=== PATIENT | female | born 1960 | race Hispanic/Latino ===

== ENCOUNTER 2019-07-23 20:36 | Inpatient (IN) | payer OTHER ==
[~2019-07-23] VITALS: Ht 165.1 cm; Wt 98.2 kg
--- NOTE | 2019-07-23 21:39 | Diagnostic Imaging Report ---
CT Abdomen and Pelvis without contrast INDICATION: Right-sided abdominal pain ^rlq and ruq pain ^[id number] ^2115 TECHNIQUE: Thin collimation axial images obtained from the diaphragm to the level of the pubic symphysis without nonionic intravenous contrast. Dose reduction techniques used: Automated exposure control, adjustment of the mAs and/or kVp according to patient size, standardized low-dose protocol, and/or iterative reconstruction technique. RADIATION DOSE: Total DLP: 1146.69 mGy*cm Estimated effective dose: (DLP x 0.015 x size factor) mSv CTDIvol has been reviewed. It is below the limits set by the Radiation Protocol Committee (RPC). COMPARISON: None. ABDOMEN FINDINGS: Lung Bases: Clear. The visualized portion of the mediastinum is normal. Liver: Steatosis. The right lobe measures 17 cm in length. No evidence of mass. Gallbladder: Present and appears normal. No ductal dilatation. Pancreas: Normal attenuation without mass. Spleen: Normal size with a few calcified granulomata. Adrenal Glands: No evidence for mass. Kidneys: Right: No renal calculus. No cortical mass or hydronephrosis Left: No renal calculus. No cortical mass or hydronephrosis Lymph Nodes: No lymphadenopathy. Aorta: Normal in diameter with scattered calcifications PELVIS FINDINGS: Bowel: Stomach: Normal. Small Bowel: Normal in caliber with normal wall thickness. Large Bowel: Normal in caliber with normal wall thickness. Appendix: Normal. Bladder: Normal. Ureters: No ureteral dilatation or calculus. The uterus is absent. No adnexal mass. Peritoneum/retroperitoneum: No free fluid or fluid collection. No free air. Bones: Mild degenerative changes of the spine. Soft tissues: Bilateral infraumbilical anterior abdominal wall subcutaneous inflammation overlying skin thickening. This may be secondary to injections. No evidence of abdominal wall hernia. IMPRESSION: 1. No evidence for bowel obstruction or inflammation. Normal appendix. 2. No evidence of renal calculus or obstructive uropathy. 3. Steatosis and mild hepatomegaly. Signed by: Dr. Tita Montenegro MD on 07/23/2019 9:35 PM
[2019-07-23] MEDS ORDERED: ACETAMINOPHEN 325 MG TAB ONE (22:29)
[2019-07-23] MEDS ORDERED: ACETAMINOPHEN 325 MG TAB PO ONE (22:30)
--- NOTE | 2019-07-23 22:36 | Diagnostic Imaging Report ---
HISTORY: Abdominal pain and fever ^rlq and ruq pain TECHNIQUE: Selected images from complete abdominal ultrasound provided for INTERPRETATION: COMPARISON: CT abdomen/pelvis 2112 hours. FINDINGS: Images are compromised due to patient's generous body habitus. Pancreas: Visualized portions are increased in echotexture suggestive of lipomatosis without mass or ductal dilatation. Liver: Measures 18.6 cm in sagittal plane. The echotexture is diffusely increased. No mass in the visualized portions. Portal Vein: Measures 1.1 cm. Proper directional flow on spectral Doppler interrogation. Intrahepatic bile ducts: Normal Gallbladder: Present. A reported gallstone is not visualized. The gallbladder wall measures 5 mm. The [facility] [employer] reports pericholecystic fluid but this is not confirmed on the static images. The [employer] also reports hyperemia of the gallbladder on Doppler interrogation. This is not confirmed on provided images, however. CBD: 0.9 cm. Right Kidney: 13.4 cm in greatest length. The echotexture is normal. There is no evidence for mass. There is no collecting system dilatation or evidence of obstruction. No renal calculi evident. No adjacent free fluid or fluid collections. Left Kidney: Length is 12.1 cm. The echotexture is normal. There is no evidence for mass. There is no collecting system dilatation or evidence of obstruction. No renal calculi evident. No adjacent free fluid or fluid collections. Spleen: 10.5 cm in length. No evidence for mass. Proximal Aorta: 1.9 cm. Mid and distal Aorta: Not visualized due to bowel gas There is no free fluid. IMPRESSION: 1. Mildly thickened gallbladder wall. No confirmation of increased blood flow within the wall or pericholecystic fluid on provided images. Dilated common bile duct without intrahepatic bile duct dilatation. Findings are inconclusive for acute cholecystitis. Recommend further evaluation with HIDA scan in nuclear medicine. 2. Hepatomegaly and steatosis. Signed by: Dr. Tita Montenegro MD on 07/23/2019 10:32 PM
[2019-07-23] MEDS ORDERED: METRONIDAZOLE 500MG/NS 100ML 100 ML IV ONE (23:15)
[2019-07-23] MEDS ORDERED: MORPHINE SULFATE INJ 4 MG/ML INJ 1ML IV PRN (23:15)
[2019-07-23] MEDS ORDERED: PIPER-TAZ 3.375 GM 50 ML IV ONE (23:15)
[2019-07-23] MEDS ORDERED: ONDANSETRON HCL INJ 2MG/ML 2ML 2 MG/ML VIAL IV PRN (23:15)
[2019-07-23] MEDS: SODIUM CHLORIDE 0.9% 1000ML 1,000 ML IV SCH (23:17)
[2019-07-23] MEDS ORDERED: ACETAMINOPHEN 325 MG TAB PO PRN (23:30)
[2019-07-24] VITALS (8 sets, daily range): BP systolic 122–152; BP diastolic 58–74
[2019-07-24] MEDS ORDERED: PIPER-TAZ 3.375 GM 50 ML IV SCH
--- NOTE | 2019-07-24 00:44 | NUR ---
ORIGINALLY CALLED [facility] ASKING FOR TANSPORT TO [facility], THEY STATED THEY HAD AN AMBUALNCE THAT WILL BE ARRIVING AT [facility] IN 10 MINUTES TO TAKE A PATIENT BACK TO PATIENTS HOME LOCATED OFF [facility] AND THAT THEY THEN WOULD RETURN TO [facility] TO TRANSPORT PT JOHNSON TO ROOM 204 AT [facility], CALLED AMBULANCE AT 1240 (EXACTLY ONE HOUR FROM PREVIOUS CALL) AND WAS INFORMED THAT THERE WAS A "HOLD UP" SOMEWHERE ALONG THE EITHER HEAD OF ACADEM[facility] TECHNOLOGY DROP OFF OR BOTH? WAS INFORMED THAT IT WOULD BE AN ADDITIONAL 30-45 MINUTES BEFORE PATIENT IS PICKED UP AT [facility] FOR TRANSPORT, STATED THAT THE AMBULANCE IS IN ROUTE TO DESTINATION, THAT THEY HADN'T EVEN ARRIVED YET TO DESTINATION???
[2019-07-24] MEDS: SODIUM CHLORIDE 0.9% 1000ML 1,000 ML IV SCH ×3 (02:00→20:50)
[2019-07-24] MEDS ORDERED: CARVEDILOL25 MG PO (03:18)
[2019-07-24] MEDS ORDERED: METFORMIN HCL500 MG PO (03:18)
[2019-07-24] MEDS ORDERED: NOVOLIN N100 UNIT/1 SQ (03:18)
[2019-07-24] MEDS ORDERED: BASAGLAR K100 UNIT/1 SQ (03:18)
[2019-07-24] MEDS ORDERED: TALTZ AUTO80 MG/1 ML SQ (03:18)
[2019-07-24] MEDS ORDERED: ALBUTEROL2.5 MG/3 M INH (03:18)
[2019-07-24] MEDS ORDERED: ATORVASTATIN CA20 MG PO (03:18)
[2019-07-24] MEDS ORDERED: VALSARTAN320 MG PO (03:18)
[2019-07-24] MEDS ORDERED: SYMBICORT 16010.2 GM INH (03:18)
[2019-07-24] MEDS ORDERED: AMLODIPINE BESY10 MG PO (03:18)
[2019-07-24] MEDS: PIPER-TAZ 3.375 GM 50 ML IV SCH ×4 (05:59→23:48)
[2019-07-24] MEDS ORDERED: METRONIDAZOLE 500MG/NS 100ML 100 ML IV SCH (06:00)
[2019-07-24 07:41] LABS: BASOPHILS % 0.1 % (0.0-1.0); EOSINOPHILS % 0.1 % (0.0-6.0); HEMATOCRIT 37.6 % (34.2-44.1); HEMOGLOBIN 12.7 g/dL (12.0-16.0); LYMPHOCYTES # (AUTO) 1.6 (1.0-3.2); LYMPHOCYTES % 11.9 % (18.0-39.1); MEAN CORPUSCULAR HEMOGLOBIN 27.5 pg (28-32); MEAN CORPUSCULAR HGB CONC 33.8 g/dL (31-35); MEAN CORPUSCULAR VOLUME 81.6 fL (81-99); MONOCYTES % 7.5 % (4.4-11.3); NEUTROPHILS # (AUTO) 10.8 (2.1-6.9); PLATELET COUNT 213 x10e3/uL (140-360); RED BLOOD COUNT 4.61 x10e6/uL (3.6-5.1); RED CELL DISTRIBUTION WIDTH 13.3 % (11.7-14.4)
[2019-07-24 08:07] LABS: ALANINE AMINOTRANSFERASE 18 IU/L (0-55); ALBUMIN 2.7 g/dL (3.5-5.0); ALBUMIN/GLOBULIN RATIO 0.7 (0.8-2.0); ALKALINE PHOSPHATASE 81 IU/L (40-150); ANION GAP 12.9 mmol/L (8-16); BLOOD UREA NITROGEN 13 mg/dL (7-26); BUN/CREATININE RATIO 17 (6-25); CALCIUM 8.3 mg/dL (8.4-10.2); CARBON DIOXIDE 25 mmol/L (22-29); CHLORIDE 101 mmol/L (98-107); CREATININE, SERUM 0.75 mg/dL (0.57-1.11); EST GLOMERULAR FILTRATION RATE > 60 ML/MIN (60-); GLUCOSE 326 mg/dL (74-118); POTASSIUM 3.9 mmol/L (3.5-5.1); SODIUM 135 mmol/L (136-145)
[2019-07-24] MEDS: METRONIDAZOLE 500MG/NS 100ML 100 ML IV SCH ×2 (08:43→16:56)
--- NOTE | 2019-07-24 12:18 | NUR ---
Pt out of room and no family at bedside. A card was left at the bedside to indicate a missed visit from a member of the Spiritual Care team and to inform the pt and family of the availability of a Package Collector 24 hours a day/7 days a week. A shactor helper will follow up as able. GAGE HUBBARD Package Collector Spiritual Care Department O: [phone]
[2019-07-24] MEDS ORDERED: DEXTROSE 50% SYRINGE 50 ML IV PRN (12:30)
[2019-07-24] MEDS ORDERED: HYDRALAZINE HCL 20 MG/ML VIAL IV PRN (14:30)
[2019-07-24] MEDS ORDERED: ALBUTEROL SULF 0.083% NEB SOLN 3 ML NEB INH PRN (14:30)
[2019-07-24] MEDS: FAMOTIDINE 20 MG TAB PO SCH (16:56)
[2019-07-24] MEDS: INSULIN LISPRO 100 UNIT/1 ML 3ML VIAL SQ SCH ×2 (16:57→21:00)
[2019-07-24] MEDS: METFORMIN HCL 500 MG TAB PO SCH (16:58)
[2019-07-24] MEDS: BUDESONIDE/FORMOTEROL 160/4.5MCG INHALER INH SCH (16:58)
[2019-07-24] MEDS: CARVEDILOL 12.5 MG TAB PO SCH (16:58)
--- NOTE | 2019-07-24 16:58 | Diagnostic Imaging Report ---
Hepatobiliary Scan with Gallbladder Ejection Fraction Clinical information: RUQ pain Technique: Following intravenous administration of 6.0 millicuries of Tc-99m mebrofenin, dynamic images of the abdomen in the anterior projection were obtained through 28 minutes. Sincalide (CCK analog) 1.9 micrograms was administered intravenously over 30 minutes with additional imaging for determination of gallbladder ejection fraction. Discussion: Perfusion of the liver is normal. Extraction of tracer by the liver parenchyma is normal. Tracer appears promptly within the biliary tract. The gallbladder begins to fill at 10 minutes post injection of tracer and fills adequately. Tracer is seen in the small bowel during the sincalide infusion. There is no contractile response by the gallbladder to the pharmacologic dose of sincalide. No emptying of the gallbladder occurs during the 30 minute infusion. Impression: 1. Filling of the gallbladder excludes acute cystic duct obstruction/acute cholecystitis. 2. The gallbladder ejection fraction is undefined as there is no emptying of the gallbladder during the infusion of sincalide. This absence of a contractile response to sincalide supports the clinical diagnosis of chronic cholecystitis/gallbladder dyskinesia. Signed by: Dr. Mell Romero M.D. on 07/24/2019 4:55 PM
--- NOTE | 2019-07-24 17:15 | Consultation ---
DATE OF CONSULTATION: 07/24/2019 CHIEF COMPLAINT: Abdominal pain. HISTORY OF PRESENT ILLNESS: The patient is a 58-year-old female with several-day history of pain in the right upper quadrant with subjective fever and chills with nausea, but no vomiting. No diarrhea. The patient admits to fatty food intolerance with indigestion. PAST MEDICAL HISTORY: Significant for diabetes, hypertension, and liver cirrhosis. PAST SURGICAL HISTORY: Unremarkable. ALLERGIES: NO DRUG ALLERGIES. SOCIAL HABITS: No smoking or alcohol abuse. REVIEW OF SYSTEMS: No chest pain, shortness of breath, or cough. PHYSICAL EXAMINATION: VITAL SIGNS: Stable, afebrile. GENERAL: She is awake, alert, in huyy-qj-zyfynayz discomfort. HEENT: Sclerae anicteric. NECK: Supple. LUNGS: Clear. HEART: Regular rate and rhythm. ABDOMEN: Soft with guarding and tenderness in right upper quadrant. No rebound. EXTREMITIES: No cyanosis or edema. LABORATORY DATA: White cell count is 14, hemoglobin of 12.7, platelet count 213. Creatinine of 0.5. Liver function tests within normal limits. Ultrasound of the gallbladder shows mildly thickened gallbladder wall with mildly dilated bile duct. CT of the abdomen unremarkable for any acute findings. ASSESSMENT: Abdominal pain, right upper quadrant, probable cholecystitis. PLAN: HIDA scan is pending. We will follow the patient with you. MD ROSA Charles/DILLON /[id number]
[2019-07-24] MEDS: ATORVASTATIN 20 MG TAB PO SCH (21:38)
[2019-07-25] VITALS (8 sets, daily range): BP systolic 113–178; BP diastolic 55–87
[2019-07-25] MEDS: METRONIDAZOLE 500MG/NS 100ML 100 ML IV SCH ×3 (00:43→15:30)
[2019-07-25] MEDS: PIPER-TAZ 3.375 GM 50 ML IV SCH ×4 (05:46→23:12)
[2019-07-25] MEDS: SODIUM CHLORIDE 0.9% 1000ML 1,000 ML IV SCH ×3 (07:12→22:59)
[2019-07-25] MEDS ORDERED: BUPIVACAINE 0.25% 30ML SDV INJ ONE (07:17)
[2019-07-25] MEDS: FAMOTIDINE 20 MG TAB PO SCH ×2 (07:30→16:46)
[2019-07-25] MEDS: BUDESONIDE/FORMOTEROL 160/4.5MCG INHALER INH SCH ×2 (07:50→19:00)
[2019-07-25] MEDS: METFORMIN HCL 500 MG TAB PO SCH ×2 (08:00→16:47)
--- NOTE | 2019-07-25 08:00 | NUR ---
Pt aao x 3. Ambulates with steady gait. Remains NPO for procedure today. Pt up to shower. Denies of any pain at this time.
[2019-07-25] MEDS: INSULIN LISPRO 100 UNIT/1 ML 3ML VIAL SQ SCH ×4 (08:06→21:36)
[2019-07-25] MEDS: AMLODIPINE BESYLATE 10 MG TAB PO SCH (08:07)
[2019-07-25] MEDS: CARVEDILOL 12.5 MG TAB PO SCH ×2 (08:07→16:47)
[2019-07-25] MEDS: VALSARTAN 160 MG TAB PO SCH (08:07)
--- NOTE | 2019-07-25 11:30 | NUR ---
PT TO OR DEPT FOR PROCEDURE VIA STRETCHER. PT AAO X 3. DENIES OF ANY PAIN.
--- NOTE | 2019-07-25 13:53 | Operative Report ---
DATE OF PROCEDURE: 07/25/2019 SURGEON: Aj Peacock MD PREOPERATIVE DIAGNOSIS: Cholecystitis. POSTOPERATIVE DIAGNOSIS: Cholecystitis. OPERATIVE PROCEDURE: Laparoscopic cholecystectomy. ANESTHESIA: General. INDICATION FOR SURGERY: A 58-year-old female with history of abdominal pain and vomiting with ultrasound showing gallbladder distention. HIDA scan show nonemptying of the gallbladder. The patient consented for laparoscopic cholecystectomy. Attendant risks discussed. PROCEDURE FINDING: Liver cirrhosis with chronic cholecystitis. DESCRIPTION OF PROCEDURE: The patient was brought to the OR intubated. The abdomen was prepped and draped in a sterile fashion. The left upper quadrant direct port access was carried out under direct vision. Other ports were placed in the umbilical, epigastric and right upper quadrant. Gallbladder was chronically inflamed and distended. Fundus retracted in cephalad direction. Neck of the gallbladder retracted laterally with blunt and sharp dissection. We isolated cystic artery, triple clipped and divided. Cystic duct was also isolated, triple clipped and divided. The gallbladder detached from the liver and placed in an Endopouch and retrieved out of the peritoneal cavity. Operative field was then irrigated. Hemostasis achieved. All ports were removed under direct vision. Fascia was closed with 0 Vicryl. Skin was then closed with subcuticular stitch. The patient was extubated and transported to recovery room. BLOOD LOSS: 10 mL. Aj Peacock MD DNL/MODL /[id number]
[2019-07-25] MEDS ORDERED: FENTANYL CITRATE/PF 100MCG/2 ML INJ ONE ×2 (14:01→19:48)
--- NOTE | 2019-07-25 14:45 | NUR ---
Recieved pt from PACU via stretcher. Pt aao x 3. RAMACHANDRAN without difficutly. Pt able to ambulate from stretcher to bed without difficulty. O2 at 2L/nc. 5 bandaids to abd dry and intact. IV to RFA patent without any redness or swelling. Pt denies of any pain at this time. Bed in low position, SR up x 2, call anguiano within reach. Will continue to monitor.
--- NOTE | 2019-07-25 16:10 | NUR ---
Patient continues to complain of pain in right knee due to gout. Dr. Linares called. New orders received. Patient is also refusing to take any further laxative for colonoscopy prep until pain in knee is better Addendum: 07/25/19 at 1709 by Kerline Alfonso RN Please disregard this note. It was entered in error on the wrong patient.
[2019-07-25] MEDS ORDERED: ONDANSETRON HCL INJ 2MG/ML 2ML 2 MG/ML VIAL ONE (16:25)
[2019-07-25] MEDS ORDERED: DEXAMETHASONE SOD PHOS INJ 4 MG/ML VIAL ONE (16:25)
[2019-07-25] MEDS ORDERED: NEOSTIGMINE 1 MG/ML 10ML VIAL ONE (16:25)
[2019-07-25] MEDS ORDERED: SEVOFLURANE INHAL SOLN 250 ML PEN BTL ONE (16:25)
[2019-07-25] MEDS ORDERED: LIDOCAINE HCL 2% LOCAL INJ 5 ML SDV VIAL INJ ONE (16:25)
[2019-07-25] MEDS ORDERED: GLYCOPYRROLATE INJ 0.2 MG/ML VIAL ONE (16:25)
[2019-07-25] MEDS ORDERED: PROPOFOL IV EMULSION 10 MG/ML 20 ML VIAL ONE (16:25)
[2019-07-25] MEDS ORDERED: ROCURONIUM BROMIDE 10 MG/ML 5ML VIAL IV ONE (16:25)
--- NOTE | 2019-07-25 17:00 | NUR ---
Patient sitting up at edge of bed. Tolerating clear liquid diet. No n/v present. Pt denies of any pain at this time.
[2019-07-25] MEDS ORDERED: MIDAZOLAM HCL 2 MG/2 ML VIAL ONE (19:48)
[2019-07-25] MEDS: ATORVASTATIN 20 MG TAB PO SCH (21:34)
[2019-07-26] VITALS: BP 132/61
[2019-07-26] MEDS: METRONIDAZOLE 500MG/NS 100ML 100 ML IV SCH ×2 (00:35→08:38)
[2019-07-26 04:00] VITALS: BP 128/64
[2019-07-26] MEDS: PIPER-TAZ 3.375 GM 50 ML IV SCH (05:19)
[2019-07-26 05:22] LABS: BASOPHILS % 0.2 % (0.0-1.0); EOSINOPHILS % 0.1 % (0.0-6.0); HEMOGLOBIN 11.4 g/dL (12.0-16.0); LYMPHOCYTES # (AUTO) 1.3 (1.0-3.2); MEAN CORPUSCULAR HEMOGLOBIN 27.1 pg (28-32); MEAN CORPUSCULAR HGB CONC 32.6 g/dL (31-35); MEAN CORPUSCULAR VOLUME 83.1 fL (81-99); MONOCYTES # (AUTO) 0.5 (0.2-0.8); MONOCYTES % 4.1 % (4.4-11.3); NEUTROPHILS # (AUTO) 9.3 (2.1-6.9); NEUTROPHILS % 83.1 % (38.7-80.0); PLATELET COUNT 194 x10e3/uL (140-360); RED BLOOD COUNT 4.21 x10e6/uL (3.6-5.1); RED CELL DISTRIBUTION WIDTH 13.3 % (11.7-14.4)
[2019-07-26 05:45] LABS: ANION GAP 13.9 mmol/L (8-16); BLOOD UREA NITROGEN 11 mg/dL (7-26); BUN/CREATININE RATIO 16 (6-25); CALCIUM 7.7 mg/dL (8.4-10.2); CARBON DIOXIDE 18 mmol/L (22-29); CHLORIDE 109 mmol/L (98-107); CREATININE, SERUM 0.67 mg/dL (0.57-1.11); EST GLOMERULAR FILTRATION RATE > 60 ML/MIN (60-); GLUCOSE 258 mg/dL (74-118); MAGNESIUM 1.8 MG/DL (1.3-2.1); PHOSPHORUS 2.4 MG/DL (2.3-4.7); POTASSIUM 3.9 mmol/L (3.5-5.1); SODIUM 137 mmol/L (136-145)
[2019-07-26] MEDS: BUDESONIDE/FORMOTEROL 160/4.5MCG INHALER INH SCH (06:25)
[2019-07-26 08:00] VITALS: BP 138/66
[2019-07-26 08:37] VITALS: BP 138/66
[2019-07-26] MEDS: FAMOTIDINE 20 MG TAB PO SCH (08:38)
[2019-07-26] MEDS: METFORMIN HCL 500 MG TAB PO SCH (08:38)
[2019-07-26] MEDS: CARVEDILOL 12.5 MG TAB PO SCH (08:38)
[2019-07-26] MEDS: VALSARTAN 160 MG TAB PO SCH (08:39)
[2019-07-26] MEDS: AMLODIPINE BESYLATE 10 MG TAB PO SCH (08:39)
[2019-07-26] MEDS: INSULIN LISPRO 100 UNIT/1 ML 3ML VIAL SQ SCH ×2 (08:39→12:05)
[2019-07-26 12:00] VITALS: BP 142/71
--- NOTE | 2019-07-26 13:02 | Discharge Summary ---
PERTINENT HISTORY AND PHYSICAL FINDINGS AND CHIEF COMPLAINT: Right upper quadrant abdominal pain. HISTORY OF PRESENT ILLNESS: Ms. Chavez is a 58-year-old female, admitted via the emergency department with complaints of intermittent right upper quadrant abdominal pain for over one month. She had a fever of 101.0 at home and took Tylenol. Denied any nausea, vomiting, diarrhea, but also had a right earache, abdominal pain 6/10 in the emergency department. The patient states she felt cold at home, had a temperature 97.7, which tram to 102.5. She denied any sick contacts remarking that she had been staying at home away from people. No vomiting or diarrhea. PAST MEDICAL HISTORY: Hypertension, type 2 diabetes mellitus, psoriasis, cerebral aneurysm, early cataract, left eye, hyperlipidemia. PAST SURGICAL HISTORY: Surgical repair of right patella, hysterectomy with cancer, total abdominal hysterectomy, bilateral salpingo-oophorectomy, repair of left arm, which was cut on a fence at age 10. PAST FAMILY HISTORY: Mother had adenocarcinoma on the common bile duct. Father had coronary artery bypass graft x3. Her brother had diabetes and her sister had cerebral aneurysm and from that. SOCIAL HISTORY: She denied any previous history of tobacco, alcohol, or illicit drugs. ALLERGIES: NO KNOWN ALLERGIES. ADMITTING DIAGNOSES: 1. Possible acute cholecystitis. 2. Acute right upper quadrant abdominal pain. 3. Uncontrolled hypertension. 4. Uncontrolled type 2 diabetes mellitus. 5. Obesity with BMI of 35.94. DISCHARGE DIAGNOSES: 1. Acute on chronic cholecystitis, status post laparoscopic cholecystectomy by Dr. Peacock on 07/25/2019. 2. Acute right upper quadrant abdominal pain, now acute postoperative abdominal pain. 3. Uncontrolled hypertension. 4. Uncontrolled type 2 diabetes mellitus. 5. Obesity with BMI of 35.94 on admission. WBCs were 13.51, hemoglobin 12.7, hematocrit 37.6, and platelets 213. Sodium 135, potassium 3.9, chloride 101, BUN 13, creatinine 0.75, estimated GFR greater than 60, glucose 326, calcium 8.3. LFTs within normal limits. Albumin 2.7, total protein 6.6. The patient had an abdomen and pelvis CT, which according to the interpreting radiologist showed no evidence for bowel obstruction or inflammation. No evidence of renal calculus or obstructive uropathy. Positive for steatosis and mild hepatomegaly. Her abdominal ultrasound was completed on July 22 and showed mildly thickened gallbladder wall, dilated common bile duct without intrahepatic bile duct dilation. Findings inconclusive for acute cholecystitis. HIDA scan was recommended, which the patient underwent on July 23, which showed filling of the gallbladder excludes acute cystic duct obstruction/acute cholecystitis. The gallbladder ejection fraction was undefined as there was no emptying of the gallbladder during infusion of sincalide absence of a contractile response supported the clinical diagnosis of chronic cholecystitis/gallbladder dyskinesia. Postoperatively, sodium 137, potassium 3.9, chloride 109, CO2 18, BUN 11, creatinine 0.67, estimated GFR greater than 60, glucose 258, calcium 7.7, phosphorus 2.4, magnesium 1.8. Fingerstick blood glucose level 277. WBCs 11.11, hemoglobin 11.4, hematocrit 35, platelets 194. Today the day of discharge, the patient still has a bit of central abdominal pain around her incision site. Describes her pain as a 3/10 on a 0-10 pain scale. She is eating well, tolerating GI soft diet. Not having any chills. She had diarrhea three times yesterday, but none today. No nausea or vomiting. Maximum temperature 99.3, heart rate 89, blood pressure 132/61, respirations 20, oxygen saturation 99%. The patient will be discharged on a GI soft diet. She is to follow up with her PCP in 1-2 weeks. Follow up with Dr. Key with Gastroenterology, who was consulted as directed. Colonoscopy is planned on an outpatient basis. Follow up with Dr. Peacock with surgery as directed. Dictated by Tenzin Guevara NP MD GI[facility] Conrad/SPIKEL /[id number]
--- NOTE | 2019-07-26 13:28 | NUR ---
Discharge instructions given to the patient. She verbalized understanding. IV to the left forearm was removed with tip intact.
--- NOTE | 2019-07-26 16:27 | NUR ---
Nutrition Screen Note RD Recommendation for Physician: -Recommend low fat diet Plan of Care: RD following, monitoring for tolerance and adequacy Nutrition reason for involvement: consult low fat diet education Primary Diagnose(s): acute cholecystitis PMH: diabetes, hypertension, and liver cirrhosis Ht: 65 in Wt:216 lb BMI: 36 kg/m2 IBW:[address] Assessment: (07/26/19) Chart reviewed. Labs and meds reviewed. Pt is a 58 year old female admitted with acute cholecystitis. On 07/24, pt had a laparascopic cholecystectomy. Per MD note, it is noted that pt has a fatty food intolerance with indigestion. Pt reports she has been tolerating her diet. No N/V at this time. Prior to admission, pt reports eating most of her meals. Pt reports she usually weighs 208 lbs; however, pt has a weight of 216 lbs in chart. Will continue to monitor. Current Diet: regular Malnutrition Evaluation (07/26/19) The patient does not meet criteria for a specified degree of malnutrition at this time. Will re-evaluate at follow-up as appropriate. Diet Education Needs Assessment: RD received consult for low fat diet education. Pt was not interested in verbal education at time of visit and stated she will read provided materials at a later time. RD provided pt with written materials regarding a low fat diet. Encouraged pt to contact RD if she has questions. Nutrition Care Level: low Signed: Анна Donahue, GORDY, LD
== END 2019-07-26 14:14 | disposition home or self-care (01) | DRG 419 ==
LOC: FSED 20:36 → ERHOLD 23:12 → MED/SURG2 07-24 01:45
PROVIDERS: ADMIT Internal Medicine; ATTEND Internal Medicine
PROC: 0FT44ZZ Resection of Gallbladder, Percutaneous Endoscopic Approach (ICD-10-PCS; principal; 2019-07-25 09:30)
DX: K81.0 Acute cholecystitis (principal); K81.1 Chronic cholecystitis; I10 Essential (primary) hypertension; E11.65 Type 2 diabetes mellitus with hyperglycemia; E66.9 Obesity, unspecified; K74.60 Unspecified cirrhosis of liver; Z68.35 Body mass index [BMI] 35.0-35.9, adult; Z80.0 Family history of malignant neoplasm of digestive organs; Z86.010 Personal history of colon polyps; R19.7 Diarrhea, unspecified; Z79.4 Long term (current) use of insulin
CPT/HCPCS: 36415; 74176; 76700; 78227; 80048; 80053; 81003; 82948; 83735; 84100; 85025; 88304; 94664; 96360; 96361; 96365; 97139; 99284; A9537; J1100; J2001; J2250; J2270; J2405; J2543; J2710; J3010; J7030

== ENCOUNTER 2019-08-15 08:33 | Emergency (ER) | payer OTHER ==
[~2019-08-15] VITALS: Ht 165.1 cm; Wt 95.7 kg
[~2019-08-15 08:33] MED LIST: ALBUTEROL2.5 MG/3 M INH; AMLODIPINE BESY10 MG PO; ATORVASTATIN CA20 MG PO; BASAGLAR K100 UNIT/1 SQ; CARVEDILOL25 MG PO; METFORMIN HCL500 MG PO; NOVOLIN N100 UNIT/1 SQ; SYMBICORT 16010.2 GM INH; TALTZ AUTO80 MG/1 ML SQ; VALSARTAN320 MG PO
[2019-08-15] MEDS ORDERED: CEFTRIAXONE SOD 1 GM VIAL IM ONE (09:15)
[2019-08-15] MEDS ORDERED: LIDOCAINE HCL 1% LOCAL INJ 20 ML VIAL ONE (09:18)
[2019-08-15] MEDS ORDERED: ACETAMINOPHEN 325 MG TAB PO SCH (09:30)
[2019-08-15] MEDS ORDERED: DOXYCYCLINE HY100 M3 PO (09:34)
[2019-08-15 09:54] VITALS: BP 102/57
== END 2019-08-15 09:53 | disposition home or self-care (01) ==
LOC: ER 08:33 → FSED 09:53
DX: R50.9 Fever, unspecified (principal); J01.00 Acute maxillary sinusitis, unspecified; J01.20 Acute ethmoidal sinusitis, unspecified
CPT/HCPCS: 96372; 99283; J0696; J2001

== ENCOUNTER 2019-12-08 17:17 | Emergency (ER) | payer OTHER ==
[~2019-12-08] VITALS: Ht 165.1 cm; Wt 95.3 kg
[~2019-12-08 17:17] MED LIST changes: +DOXYCYCLINE HY100 M3 PO
--- OUTSIDE RECORDS SUMMARY | 2019-12-08 17:41 | XMS REPORT | Clinical Summary ---
Author Author [facility] Organization [facility] Address Unknown Phone Unavailable Care Team Providers Care Order Administrator Name Role Phone Asked, No Pcp PCP Unavailable Allergies Comments Active Allergy Reactions Severity Noted Date Sulfamethoxazole-Trimetho Itching 05/16/2018 prim Medications End Date Status Medication Sig Dispensed Refills Start Date Active icosapent ethyl (VASCEPA) Take 2 g by 0 1 gram capsule mouth 2 (two) times a day. Active atorvastatin (LIPITOR) 10 Take 10 mg by 0 MG tablet mouth daily. Active lisinopril Take 40 mg by 0 (PRINIVIL,ZESTRIL) 40 mg mouth daily. tablet Active cholecalciferol, vitamin Take 2,000 0 D3, (VITAMIN D3) 2,000 Units by unit capsule capsule mouth daily. Active aspirin (ECOTRIN) 81 MG Take 81 mg by 0 enteric coated tablet mouth daily. Active insulin NPH (HumuLIN-N) Inject 75 0 100 unit/mL injection Units under the skin 2 (two) times a day before meals. Novolin N Active insulin Inject 40 0 glargine,hum.rec.anlog Units under (BASAGLAR KWIKPEN U-100 the skin INSULIN SUBQ) nightly. Active Problems Not on file Social History Date Tobacco Use Types Packs/Day Years Used Never Smoker Smokeless Tobacco: Never Used Drinks/Week oz/Week Comments Alcohol Use No Alcohol Habits Answer Date Recorded How often do you have a drink containing alcohol? Never 05/15/2018 How many drinks containing alcohol do you have on No t asked a typical day when you are drinking? How often do you have six or more drinks on one Not asked occasion? Sex Assigned at Date Recorded Not on file Industry Job Start Date Occupation Not on file Not on file Not on file Travel End Travel History Travel Start No recent travel history available. Last Filed Vital Signs Not on file Plan of Treatment Health Maintenance Due Date Last Done Comments DIABETIC RETINAL EYE EXAM 1959 DIABETIC FOOT EXAM 11/18/1969 URINE MICROALBUMIN 11/18/1969 CERVICAL CANCER SCREENING 11/18/1980 BREAST CANCER SCREENING 11/18/2009 COLONOSCOPY SCREENING 11/18/2009 SHINGLES VACCINES (#1) 11/18/2009 INFLUENZA VACCINE 12/25/2019 01/23/2014, 01/23/2013 Results Not on fileafter 12/07/2018 Insurance Type Payer Benefit Subscriber ID Effective Phone Address Plan / Dates Group HMO CIGNA CIGNA OPEN xxxxxxxxxxx [id number] ACCESS/NET resent WORK Advance Directives For more information, please contact: [phone] Patient Plug Overwrap Machine Tender Explanation Type Date Recorded Advance Directives, Living Will and Medical Power of Special Education Math Teacher
--- OUTSIDE RECORDS SUMMARY | 2019-12-08 17:41 | XMS REPORT | Clinical Summary ---
Author Author [facility] Organization [facility] Address Unknown Phone Unavailable Care Team Providers Care Carriage Setter Name Role Phone Sharpless PCP Allergies No Known Allergies Medications End Date Status Medication Sig Dispensed Refills Start Date Active bisoprolol-hydrochlorothi Take 1 tablet 0 azide (ZIAC) 2.5-6.25 mg by mouth 2 per tablet (two) times daily as needed . Active lisinopril Take 40 mg by 0 (PRINIVIL,ZESTRIL) 40 MG mouth daily. tablet Active IXEKIZUMAB (TALTZ SYRINGE Inject 80 mg 0 SUBQ) subcutaneousl y every 30 (thirty) days . Active gemfibrozil (LOPID) 600 Take 600 mg 0 MG tablet by mouth daily . Active albuterol (PROVENTIL) 2.5 Take 0.5 mLs 10 each 0 03/21/201 mg/0.5 mL Nebu nebulizer (2.5 mg 7 solution total) by nebulization every 6 (six) hours as needed. Active insulin Inject 40 0 glargine,hum.rec.anlog Units (BASAGLAR KWIKPEN U-100 subcutaneousl INSULIN SUBQ)Indications: y nightly . at night Active celecoxib (CELEBREX) 100 celecoxib 100 0 MG capsule mg capsule Active doxycycline (VIBRAMYCIN) doxycycline 0 100 MG capsule hyclate 100 mg capsule Active gabapentin (NEURONTIN) gabapentin 0 300 MG capsule 300 mg capsule Active HYDROcodone-acetaminophen hydrocodone 0 (NORCO 10-325) 10-325 mg 10 per tablet mg-acetaminop hen 325 mg tablet Active fenofibrate (LIPOFEN) 150 Lipofen 150 0 mg Cap mg capsule Active mv, min REQ49+ 200 0 cmb#[id number]-IY-zhmkwo-lycop mcg-1.5 (REQ49+) 200-1.5-1.5 mg-1.5 mg mcg-mg-mg Tab tablet Active budesonide-formoterol Symbicort 160 0 (SYMBICORT) 160-4.5 mcg-4.5 mcg/actuation inhaler mcg/actuation HFA aerosol inhaler Active calcipotriene-betamethaso Taclonex 0 ne (TACLONEX) external 0.005 %-0.064 suspension % topical suspension Active triamcinolone (KENALOG) triamcinolone 0 0.1 % topical cream acetonide 0.1 % topical cream Active Problems Problem Noted Date Left sided chest pain 01/31/2018 Acute cystitis without hematuria 01/31/2018 RUQ pain 01/31/2018 Left bundle branch block (LBBB) determined by electro cardiography 01/31/2018 Cough 01/31/2018 Family History Medical History Relation Name Comments Heart disease Father Cancer Mother Relation Name Status Comments Father Mother Social History Date Tobacco Use Types Packs/Day Years Used Former Smoker Smokeless Tobacco: Never Used Alcohol Use Drinks/Week oz/Week Comments No OCASSIONALLY Sex Assigned at Date Recorded Not on file Industry Job Start Date Occupation Not on file Not on file Not on file Travel End Travel History Travel Start No recent travel history available. Last Filed Vital Signs Not on file Plan of Treatment Not on file Results Not on fileafter 12/07/2018 Insurance Payer Benefit Subscriber ID Type Phone Address Plan / Group CIGNA - MGD CARE CIGNA xxxxxxxxxxx HMO/POS HMO/POS/OP EN ACCESS [id number] Advance Directives For more information, please contact: [facility] [address] [place] [address] Date Inactivated Comments Code Status Date Activated 02/01/2018 10:01 PM Full Code 01/31/2018 8:15 AM This code status was determined by: Patient
--- OUTSIDE RECORDS SUMMARY | 2019-12-08 17:42 | XMS REPORT | Continuity of Care Document ---
Author Author [facility] t Organization [facility] Address [address] [place] [address] Phone Unavailable Care Team Providers Care Quickbooks Bookkeeper Name Role Phone NONSTAFF PCP Unavailable ANNIE NIELSEN Attphys Unavailable TRACE COLBERT Attphys Unavailable ARIAS WRIGHT Attphys Unavailable Graciela EVANS JAMILAH Attphys Unavailable ANNIE NIELSEN Admphys Unavailable Radha DAVIS Admphys Unavailable MUNOT, G JAMILAH Admphys Unavailable Payers Payer Name Policy Type Policy Number Effective Date Expiration Date [facility] [id number] 2017 00:00:00 [facility] Cigna o [id number] 2018 00:00:00 2019 00:0 0:00 [facility] Problems Condition Name Condition Details Condition Category Status Onset Date Resolution Date Last Treatment Date Treating Clinician Comments Source Left sided chest pain Left sided chest pain Disease Active 201 12-02-08 00:00:00 [facility] Acute cystitis without hematuria Acute cystitis without hematuri a Disease Active 2018-01-31 00:00:00 [facility] RUQ pain RUQ pain Disease Active 2018-01-31 00:00:00 [facility] Left bundle branch block (LBBB) determined by electroc ardiography Left bundle branch block (LBBB) determined by electrocardiography Disease Active 2018-01-31 00:00:00 [facility] Cough Cough Disease Active 2018-01-31 00:00:00 [facility] ACUTE CHOLECYSTITIS Problem Active [facility] Allergies, Adverse Reactions, Alerts Allergy Name Allergy Type Status Severity Reaction(s) Onset Date Inacti ve Date Treating Clinician Comments Source Sulfamethoxazole-Trimethoprim Propensity to adverse reactions to dr margaret Active Itching 2018-05-16 00:00:00 Param Shen sulfamethoxazole DA Active SV 2018-03-28 00:00:00 [facility] trimethoprim DA Active SV 2018-03-28 00:00:00 [facility] Family History Family Member Diagnosis Comments Start Date Stop Date Source Natural father Heart disease [facility] Natural mother Cancer [facility] Social History Social Habit Start Date Stop Date Quantity Comments Source History SDOH Alcohol Std Drinks Param Hardyist History SDOH Alcohol Binge [place] [facility] Sex Assigned At [facility] Alcohol intake 2018-05-18 00:00:00 2018-05-18 00:00:00 Current non-drinker of alcohol (finding) [place] [facility] History SDOH Alcohol Frequency 2018-05-15 00:00:00 2018-05-15 00:00:0 0 1 Param Shen Alcohol Comment 2013-04-21 00:00:00 2013-04-21 00:00:00 [facility]ALLY [facility] Smoking Status Start Date Stop Date Source Never smoker Param Murray t Former smoker 2018-01-31 00:00:00 2018-01-31 00:00:00 [facility] Medications Ordered Medication Name Filled Medication Name Start Date Stop Da te Current Medication? Ordering Clinician Indication Dosage Frequency Signature (SIG) Comments Components Source Doxycycline Hyclate 100 Mg Tablet Doxycycline Hyclate 100 Mg Tablet 2019-08-15 00:00:00 Yes Nithin Hammond 1 Every 12 Hours [facility] icosapent ethyl (VASCEPA) 1 gram capsule 2018-05-16 15:44:25 Yes 2g Q.5D Take 2 g by mouth 2 (two) times a day. Param Shen atorvastatin (LIPITOR) 10 MG tablet 2018-05-16 15:44:25 Yes 10mg QD Take 10 mg by mouth daily. Param Shen lisinopril (PRINIVIL,ZESTRIL) 40 mg tablet 2018-05-16 15:44:25 Yes 40mg QD Take 40 mg by mouth daily. Yon Shen cholecalciferol, vitamin D3, (VITAMIN D3) 2,000 unit capsule capsule 2018-05-16 15:44:25 Yes 2000U QD Take 2,000 Units b y mouth daily. Param Shen aspirin (ECOTRIN) 81 MG enteric coated tablet 2018-05-16 15:44:2 5 Yes 81mg QD Take 81 mg by mouth daily. Demetris Shen insulin NPH (HumuLIN-N) 100 unit/mL injection 2018-05-16 15:44:2 5 Yes 75U Q.5D Inject 75 Units under the sk in 2 (two) times a day before meals. Atiya Shen insulin glargine,hum.rec.anlog (BASAGLAR KWIKPEN U-100 INSUL IN SUBQ) 2018-05-16 15:44:25 Yes 40U QD Inject 40 Un its under the skin nightly. Param Shen HYDROcodone-acetaminophen (NORCO 10-325) 10-325 mg per table t 2018-01-31 08:09:15 Yes hydrocodone 10 mg-acetaminoph en 325 mg tablet [facility] fenofibrate (LIPOFEN) 150 mg Cap 2018-01-31 08:09:15 Yes Lipofen 150 mg capsule [facility] mv, min cmb#[id number]-YF-oiujak-lycop (REQ49+) 200-1.5-1.5 mcg-mg-m g Tab 2018-01-31 08:09:15 Yes REQ49+ 200 mcg-1.5 mg-1.5 mg tablet [facility] budesonide-formoterol (SYMBICORT) 160-4.5 mcg/actuation inha ler 2018-01-31 08:09:15 Yes Symbicort 160 mcg-4.5 m cg/actuation HFA [facility] calcipotriene-betamethasone (TACLONEX) external suspension 2018-01-31 08:09:15 Yes Taclonex 0.005 %-0.064 % topica l suspension [facility] triamcinolone (KENALOG) 0.1 % topical cream 2018-01-31 08:09:15 Yes triamcinolone acetonide 0.1 % topical cream [facility] celecoxib (CELEBREX) 100 MG capsule 2018-01-31 08:09:14 Yes celecoxib 100 mg capsule [facility] doxycycline (VIBRAMYCIN) 100 MG capsule 2018-01-31 08:09:14 Yes doxycycline hyclate 100 mg capsule [facility] gabapentin (NEURONTIN) 300 MG capsule 2018-01-31 08:09:14 Y es gabapentin 300 mg capsule [facility] bisoprolol-hydrochlorothiazide (ZIAC) 2.5-6.25 mg per tablet 2018-01-31 05:09:09 Yes 1{tbl} Take 1 tab let by mouth 2 (two) times daily as needed . [facility] IXEKIZUMAB (TALTZ SYRINGE SUBQ) 2018-01-31 05:09:09 Yes 80mg Inject 80 mg subcutaneously every 30 (thirty) days . [facility] gemfibrozil (LOPID) 600 MG tablet 2018-01-31 05:09:09 Yes 600mg QD Take 600 mg by mouth daily . [facility] insulin glargine,hum.rec.anlog (BASAGLAR KWIKPEN U-100 INSUL IN SUBQ) 2018-01-31 05:09:09 Yes 40U QD Inject 40 Un its subcutaneously nightly . [facility] albuterol (PROVENTIL) 2.5 mg/0.5 mL Nebu nebulizer solution 2017-03-21 00:00:00 Yes 2.5mg Take 0.5 m Ls (2.5 mg total) by nebulization every 6 (six) hours as needed. [facility] lisinopril (PRINIVIL,ZESTRIL) 40 MG tablet 2013-04-21 11:53:11 Yes 40mg QD Take 40 mg by mouth daily. [facility] Albuterol Sulfate 2.5 Mg/3 Ml Vial.neb Albuterol Sulfate 2.5 Mg/ 3 Ml Vial.neb Yes 3 Every 4 Hours as needed for Shor tness Of Breath [facility] Amlodipine Besylate 10 Mg Tablet Amlodipine Besylate 10 Mg Tablet Yes 10 Daily [facility] Atorvastatin Calcium 20 Mg Tablet Atorvastatin Calcium 20 Mg Tablet Yes 20 Bedtime [facility] Budesonide/Formoterol Fumarate (Symbicor t 160-4.5 Mcg Inhaler) 10.2 Gm Hfa.aer.ad Budesonide/Formoterol Fumarate (Symbicor t 160-4.5 Mcg Inhaler) 10.2 Gm Hfa.aer.ad Yes 2 Daily as needed for Shor tness Of Breath [facility] Carvedilol 25 Mg Tablet Carvedilol 25 Mg Tablet Yes 50 Twice A Day [facility] Insulin Glargine,Hum.rec.anlog (Basaglar Kwikpen U-100) 100 Unit/1 Ml Insuln.pen Insulin Glargine,Hum.rec.anlog (Basaglar Kwikpen U-100) 100 Unit/1 Ml Insuln.pen Yes 50 Daily [facility] Ixekizumab (Taltz Autoinjector) 80 Mg/1 Ml Auto.injct Ixekizumab (Taltz Autoinjector) 80 Mg/1 Ml Auto.injct Yes 80 Us e As Directed [facility] Metformin Hcl 500 Mg Tablet Metformin Hcl 500 Mg Tablet Yes 500 Twice A Day [facility] Nph, Human Insulin Isophane (Novolin N) 100 Unit/1 Ml Vial Nph, Human Insulin Isophane (Novolin N) 100 Unit/1 Ml Vial Yes 75 Every 12 Hours [facility] Valsartan 320 Mg Tablet Valsartan 320 Mg Tablet Yes 32 0 Daily [facility] Procedures Procedure Date / Time Performed Performing Clinician [facility] jennifer Laparoscopic cholecystectomy 2019-07-25 00:00:00 AMIRA WISE [facility] Plan of Care Planned Activity Planned Date Details Comments Source Future Scheduled Test 2019-12-25 00:00:00 INFLUENZA VACCINE [code = INFLUENZA VACCINE] Param Shen Future Scheduled Test 2009-11-18 00:00:00 BREAST CANCER SCRE ENING [code = BREAST CANCER SCREENING] [place] [employer] Future Scheduled Test 2009-11-18 00:00:00 COLONOSCOPY SCREEN ING [code = COLONOSCOPY SCREENING] [facility] Future Scheduled Test 2009-11-18 00:00:00 SHINGLES VACCINES (#1) [code = SHINGLES VACCINES (#1)] [place] [employer] Future Scheduled Test 1980-11-18 00:00:00 Screening for adebayo gnant neoplasm of cervix (procedure) [code = 053393967] [place] Trevor t Future Scheduled Test 1969-11-18 00:00:00 DIABETIC FOOT EXAM [code = DIABETIC FOOT EXAM] [place] [facility] Future Scheduled Test 1969-11-18 00:00:00 URINE MICROALBUMIN [code = URINE MICROALBUMIN] [place] [facility] Future Scheduled Test 1959 00:00:00 DIABETIC RETINAL E YE EXAM [code = DIABETIC RETINAL EYE EXAM] [place] [facility] Encounters Start Date/Time End Date/Time Encounter Type Admission Type [facility] Care Department Encounter ID Source 2019-08-15 08:33:00 2019-08-15 09:53:00 Departed Emergency Room [facility] [id number] [facility] 2019-07-23 23:12:00 2019-07-26 14:14:00 Discharged Inpatient 1 ANNIE NIELSEN [facility] [id number] [facility] 2019-04-23 22:41:00 2019-04-24 05:21:00 Departed Emergency Room 1 TRACE COLBERT [facility] [id number] [facility] Results Test Description Test Time Test Comments Results Result Comments Source Bedside Glucose 2019-07-26 16:27:00 Test Item Bedside Glucose (test code = 28851-8) 319 70-120 H Meter ID: [id number] [facility] 2019-07[facility] 16:27:00* Test Item Value Reference Range Interpretation Comments Bedside Glucose (test code = 92989-1) 319 70-120 H Meter ID: [id number] [facility] 2019-[facility] 05:49:00* Test Item Value Reference Range Interpretation Comments Sodium Level (test code = 2951-2) 137 136-145 [facility]Pot[facility] Ntunk1610-52-37 05:49:00* Test Item Value Reference Range Interpretation Comments Potassium Level (test code = 2823-3) 3.9 3.5-5.1 [facility] HospitalChloride Kzjlx5959-05-89 05:49:00* Test Item Value Reference Range Interpretation Comments Chloride Level (test code = 2075-0) 109 98-107 H [facility] HospitalCarbon Dioxide Yiwgb7149-87-09 05:49:00* Test Item Value Reference Range Interpretation Comments Carbon Dioxide Level (test code = 2028-9) 18 22-29 L [facility] HospitalAnion Qmw7840-67-58 05:49:00* Test Item Value Reference Range Interpretation Comments Anion Gap (test code = 33293-2) 13.9 8-16 [facility] HospitalBlood Urea Icuobthp3659-47-12 05:49:00* Test Item Value Reference Range Interpretation Comments Blood Urea Nitrogen (test code = 3094-0) 11 7-26 [facility] HospitalCreatinine2020-04-02 05:49:00* Test Item Value Reference Range Interpretation Comments Creatinine (test code = 2160-0) 0.67 0.57-1.11 [facility] HospitalBUN/Creatinine Ftfxy5303-36-42 05:49:00* Test Item Value Reference Range Interpretation Comments BUN/Creatinine Ratio (test code = 3097-3) 16 6-25 [facility] HospitalEstimat Glomerular Filtration Rate 2019-07-26 05:49:00* Test Item Value Reference Range Interpretation Comments Estimat Glomerular Filtration Rate (test code = 936219353) > 60 >60 Ranges were taken from the National Kidney Disease Education Program and the [facility] literature.Reference ranges:60 or greater: Oshshj95-76 ( for 3 consecutive months): Chronic kidney disease 15 or less: Kidney failureJohn Peter Smith HospitalGlucose Ejneq0532-06-34 05:49:00* Test Item Value Reference Range Interpretation Comments Glucose Level (test code = LJM8051) 258 74-118 H [facility] HospitalCalcium Temof5403-70-25 05:49:00* Test Item Value Reference Range Interpretation Comments Calcium Level (test code = 18350-5) 7.7 8.4-10.2 L [facility] HospitalPhosphorus Vgxzk9341-05-57 05:49:00* Test Item Value Reference Range Interpretation Comments Phosphorus Level (test code = EFN4855) 2.4 2.3-4.7 [facility] HospitalMagnesium Cmgsk8559-11-80 05:49:00* Test Item Value Reference Range Interpretation Comments Magnesium Level (test code = 81847-1) 1.8 1.3-2.1 [facility] Jefos6298-97-20 05:49:00* Test Item Value Reference Range Interpretation Comments Sodium Level (test code = 2951-2) 137 136-145 [facility] HospitalPotassium Slfoq3629-48-27 05:49:00* Test Item Value Reference Range Interpretation Comments Potassium Level (test code = 2823-3) 3.9 3.5-5.1 [facility] HospitalChloride Flmna4332-05-67 05:49:00* Test Item Value Reference Range Interpretation Comments Chloride Level (test code = 2075-0) 109 98-107 H [facility] HospitalCarbon Dioxide Ztjza3301-05-10 05:49:00* Test Item Value Reference Range Interpretation Comments Carbon Dioxide Level (test code = 2028-9) 18 22-29 L [facility] HospitalAnion Yyv1256-93-29 05:49:00* Test Item Value Reference Range Interpretation Comments Anion Gap (test code = 03816-3) 13.9 8-16 [facility] HospitalBlood Urea Xpjieqxs5665-41-02 05:49:00* Test Item Value Reference Range Interpretation Comments Blood Urea Nitrogen (test code = 3094-0) 11 7-26 [facility] HospitalCreatinine2020-04-02 05:49:00* Test Item Value Reference Range Interpretation Comments Creatinine (test code = 2160-0) 0.67 0.57-1.11 [facility] HospitalBUN/Creatinine Ogtik5866-48-78 05:49:00* Test Item Value Reference Range Interpretation Comments BUN/Creatinine Ratio (test code = 3097-3) 16 6-25 [facility] HospitalEstimat Glomerular Filtration Rate 2019-07-26 05:49:00* Test Item Value Reference Range Interpretation Comments Estimat Glomerular Filtration Rate (test code = 785840637) > 60 >60 Ranges were taken from the National Kidney Disease Education Program and the [facility] Kidney Foundation literature.Reference ranges:60 or greater: Biyyvf19-47 ( for 3 consecutive months): Chronic kidney disease 15 or less: Kidney failureJohn Peter Smith HospitalGlucose Ybvzh9025-40-65 05:49:00* Test Item Value Reference Range Interpretation Comments Glucose Level (test code = MKF1542) 258 74-118 H [facility] HospitalCalcium Mdsbw7301-18-17 05:49:00* Test Item Value Reference Range Interpretation Comments Calcium Level (test code = 45657-4) 7.7 8.4-10.2 L [facility] HospitalPhosphorus Dflvh7175-25-77 05:49:00* Test Item Value Reference Range Interpretation Comments Phosphorus Level (test code = TQR6061) 2.4 2.3-4.7 [facility] HospitalMagnesium Cnpmu6012-27-95 05:49:00* Test Item Value Reference Range Interpretation Comments Magnesium Level (test code = 24549-5) 1.8 1.3-2.1 [facility] HospitalWhite Blood Ngqtr4493-66-56 05:34:00* Test Item Value Reference Range Interpretation Comments White Blood Count (test code = 6690-2) 11.11 4.8-10.8 H [facility] HospitalRed Blood Eabip0680-45-55 05:34:00* Test Item Value Reference Range Interpretation Comments Red Blood Count (test code = 789-8) 4.21 3.6-5.1 [facility] HospitalHemoglobin2020-04-02 05:34:00* Test Item Value Reference Range Interpretation Comments Hemoglobin (test code = 99108-8) 11.4 12.0-16.0 L [facility] HospitalHematocrit2020-04-02 05:34:00* Test Item Value Reference Range Interpretation Comments Hematocrit (test code = 4544-3) 35.0 34.2-44.1 [facility] HospitalMean Corpuscular Eraslr0500-92-18 05:34:00* Test Item Value Reference Range Interpretation Comments Mean Corpuscular Volume (test code = 787-2) 83.1 81-99 [facility] HospitalMean Corpuscular Npghnsfooc5568-81-61 05:34:00* Test Item Value Reference Range Interpretation Comments Mean Corpuscular Hemoglobin (test code = 785-6) 27.1 28-32 L [facility] HospitalMean Corpuscular Hemoglobin Concent 2019-07-26 05:34:00* Test Item Value Reference Range Interpretation Comments Mean Corpuscular Hemoglobin Concent (test code = 786-4) 32.6 31-35 [facility] HospitalRed Cell Distribution Wksar7534-46-16 05:34:00* Test Item Value Reference Range Interpretation Comments Red Cell Distribution Width (test code = 18977-4) 13.3 11.7 -14.4 [facility] HospitalPlatelet Nmefj2400-18-67 05:34:00* Test Item Value Reference Range Interpretation Comments Platelet Count (test code = 777-3) 194 140-360 [facility] HospitalNeutrophils (%) (Auto)2019-07-26 05:34:00 * Test Item Value Reference Range Interpretation Comments Neutrophils (%) (Auto) (test code = 18651-7) 83.1 38.7-80.0 H [facility] HospitalLymphocytes (%) (Auto)2019-07-26 05:34:00 * Test Item Value Reference Range Interpretation Comments Lymphocytes (%) (Auto) (test code = 736-9) 12.0 18.0-39.1 L [facility] HospitalMonocytes (%) (Auto)2019-07-26 05:34:00* Test Item Value Reference Range Interpretation Comments Monocytes (%) (Auto) (test code = 5905-5) 4.1 4.4-11.3 L [facility] HospitalEosinophils (%) (Auto)2019-07-26 05:34:00 * Test Item Value Reference Range Interpretation Comments Eosinophils (%) (Auto) (test code = 713-8) 0.1 0.0-6.0 [facility] HospitalBasophils (%) (Auto)2019-07-26 05:34:00* Test Item Value Reference Range Interpretation Comments Basophils (%) (Auto) (test code = 706-2) 0.2 0.0-1.0 [facility] HospitalIM GRANULOCYTES %2019-07-26 05:34:00* Test Item Value Reference Range Interpretation Comments IM GRANULOCYTES % (test code = IM GRANULOCYTES %) 0.5 0.0- 1.0 [facility] HospitalNeutrophils # (Auto)2019-07-26 05:34:00* Test Item Value Reference Range Interpretation Comments Neutrophils # (Auto) (test code = 751-8) 9.3 2.1-6.9 H [facility] HospitalLymphocytes # (Auto)2019-07-26 05:34:00* Test Item Value Reference Range Interpretation Comments Lymphocytes # (Auto) (test code = 90791-0) 1.3 1.0-3.2 [facility] HospitalMonocytes # (Auto)2019-07-26 05:34:00* Test Item Value Reference Range Interpretation Comments Monocytes # (Auto) (test code = 742-7) 0.5 0.2-0.8 [facility] HospitalEosinophils # (Auto)2019-07-26 05:34:00* Test Item Value Reference Range Interpretation Comments Eosinophils # (Auto) (test code = 711-2) 0.0 0.0-0.4 [facility] HospitalBasophils # (Auto)2019-07-26 05:34:00* Test Item Value Reference Range Interpretation Comments Basophils # (Auto) (test code = 704-7) 0.0 0.0-0.1 [facility] HospitalAbsolute Immature Granulocyte (auto 2019-07-26 05:34:00* Test Item Value Reference Range Interpretation Comments Absolute Immature Granulocyte (auto (shamar t code = Absolute Immature Granulocyte (auto) 0.05 0-0.1 [facility] HospitalWhite Blood Ycils3082-72-88 05:34:00* Test Item Value Reference Range Interpretation Comments White Blood Count (test code = 6690-2) 11.11 4.8-10.8 H [facility] HospitalRed Blood Kxzzu1232-37-87 05:34:00* Test Item Value Reference Range Interpretation Comments Red Blood Count (test code = 789-8) 4.21 3.6-5.1 [facility] HospitalHemoglobin2020-04-02 05:34:00* Test Item Value Reference Range Interpretation Comments Hemoglobin (test code = 19777-6) 11.4 12.0-16.0 L [facility] HospitalHematocrit2020-04-02 05:34:00* Test Item Value Reference Range Interpretation Comments Hematocrit (test code = 4544-3) 35.0 34.2-44.1 [facility] HospitalMean Corpuscular Bofwuc6679-04-22 05:34:00* Test Item Value Reference Range Interpretation Comments Mean Corpuscular Volume (test code = 787-2) 83.1 81-99 [facility] HospitalMean Corpuscular Sdyryihjau7575-39-42 05:34:00* Test Item Value Reference Range Interpretation Comments Mean Corpuscular Hemoglobin (test code = 785-6) 27.1 28-32 L [facility] HospitalMean Corpuscular Hemoglobin Concent 2019-07-26 05:34:00* Test Item Value Reference Range Interpretation Comments Mean Corpuscular Hemoglobin Concent (test code = 786-4) 32.6 31-35 [facility] HospitalRed Cell Distribution Npizd9413-25-62 05:34:00* Test Item Value Reference Range Interpretation Comments Red Cell Distribution Width (test code = 53509-0) 13.3 11.7 -14.4 [facility] HospitalPlatelet Rnvkr8103-89-55 05:34:00* Test Item Value Reference Range Interpretation Comments Platelet Count (test code = 777-3) 194 140-360 [facility] HospitalNeutrophils (%) (Auto)2019-07-26 05:34:00 * Test Item Value Reference Range Interpretation Comments Neutrophils (%) (Auto) (test code = 43711-4) 83.1 38.7-80.0 H [facility] HospitalLymphocytes (%) (Auto)2019-07-26 05:34:00 * Test Item Value Reference Range Interpretation Comments Lymphocytes (%) (Auto) (test code = 736-9) 12.0 18.0-39.1 L [facility] HospitalMonocytes (%) (Auto)2019-07-26 05:34:00* Test Item Value Reference Range Interpretation Comments Monocytes (%) (Auto) (test code = 5905-5) 4.1 4.4-11.3 L [facility] HospitalEosinophils (%) (Auto)2019-07-26 05:34:00 * Test Item Value Reference Range Interpretation Comments Eosinophils (%) (Auto) (test code = 713-8) 0.1 0.0-6.0 [facility] HospitalBasophils (%) (Auto)2019-07-26 05:34:00* Test Item Value Reference Range Interpretation Comments Basophils (%) (Auto) (test code = 706-2) 0.2 0.0-1.0 [facility] HospitalIM GRANULOCYTES %2019-07-26 05:34:00* Test Item Value Reference Range Interpretation Comments IM GRANULOCYTES % (test code = IM GRANULOCYTES %) 0.5 0.0- 1.0 [facility] HospitalNeutrophils # (Auto)2019-07-26 05:34:00* Test Item Value Reference Range Interpretation Comments Neutrophils # (Auto) (test code = 751-8) 9.3 2.1-6.9 H [facility] HospitalLymphocytes # (Auto)2019-07-26 05:34:00* Test Item Value Reference Range Interpretation Comments Lymphocytes # (Auto) (test code = 41139-4) 1.3 1.0-3.2 [facility] HospitalMonocytes # (Auto)2019-07-26 05:34:00* Test Item Value Reference Range Interpretation Comments Monocytes # (Auto) (test code = 742-7) 0.5 0.2-0.8 [facility] HospitalEosinophils # (Auto)2019-07-26 05:34:00* Test Item Value Reference Range Interpretation Comments Eosinophils # (Auto) (test code = 711-2) 0.0 0.0-0.4 [facility] HospitalBasophils # (Auto)2019-07-26 05:34:00* Test Item Value Reference Range Interpretation Comments Basophils # (Auto) (test code = 704-7) 0.0 0.0-0.1 [facility] HospitalAbsolute Immature Granulocyte (auto 2019-07-26 05:34:00* Test Item Value Reference Range Interpretation Comments Absolute Immature Granulocyte (auto (shamar t code = Absolute Immature Granulocyte (auto) 0.05 0-0.1 [facility] HospitalHEPTOBILIARY W XYZNW8646-37-62 16:53:00 [facility] [address] [place] [address] Patient Name: KORI JOHNSON MR #: [id number] : 1960 Age/Sex: 58/F Req #: [id number] Adm Physician: ANNIE NIELSEN MD Ordered by: MAHAD KING MD Report #: [id number] Location: MED/SURG2 Room/Bed: [facility] Procedure: [id number] NM /HEPTOBILIARY W PHARM Exam Date: Exam Time: REPORT STATUS: Signed Hepatobiliary Sc an with Gallbladder Ejection Fraction Clinical information: RUQ pain T echnique: Following intravenous administration of 6.0 millicuries of Tc-99m me brofenin, dynamic images of the abdomen in the anterior projection were obtain ed through 28 minutes. Sincalide (CCK analog) 1.9 micrograms was administered intravenously over 30 minutes with additional imaging for determination of ga llbladder ejection fraction. Discussion: Perfusion of the liver is normal. Extraction of tracer by the liver parenchyma is normal. Tracer appears promp tly within the biliary tract. The gallbladder begins to fill at [address] injection of tracer and fills adequately. Tracer is seen in the small aramis l during the sincalide infusion. There is no contractile response by the gall bladder to the pharmacologic dose of sincalide. No emptying of the gallbladde r occurs during the 30 minute infusion. Impression: 1. Filling o f the gallbladder excludes acute cystic duct obstruction/acute cholecystitis. 2. The gallbladder ejection fraction is undefined as there is no emptying of the gallbladder during the infusion of sincalide. This absence of a contrac tile response to sincalide supports the clinical diagnosis of chronic cholecys titis/gallbladder dyskinesia. Signed by: Dr. Panchito Romero M.D. on 07/24/2019 4:55 PM Dictated By: PANCHITO ROMERO MD 54 Transcribed By: BONILLA on 07/24/191654 COPY TO: MAHAD KING MD Total [id number] 08:12:00* Test Item Value Reference Range Interpretation Comments Total Bilirubin (test code = 1974-2) 0.6 0.2-1.2 [facility] Transf (AST/SGOT) 2019-07-24 08:12:00* Test Item Value Reference Range Interpretation Comments Aspartate Amino Transf (AST/SGOT) (test code = Aspartate Amino Transf (AST/SGOT)) 13 5-34 [facility]otransferase (ALT/SGPT) 2019-07-24 08:12:00* Test Item Value Reference Range Interpretation Comments Alanine Aminotransferase (ALT/SGPT) (test code = 1742-6) 18 0-55 [facility] [id number] 08:12:00* Test Item Value Reference Range Interpretation Comments Total Protein (test code = 2885-2) 6.6 6.5-8.1 [facility]in2020-03-31 08:12:00* Test Item Value Reference Range Interpretation Comments Albumin (test code = 1751-7) 2.7 3.5-5.0 L [facility]Globulin2020-03-31 08:12:00* Test Item Value Reference Range Interpretation Comments Globulin (test code = 94246-0) 3.9 2.3-3.5 H [facility]Album[facility]/Globulin [id number] 08:12:00 * Test Item Value Reference Range Interpretation Comments Albumin/Globulin Ratio (test code = 1759-0) 0.7 0.8-2.0 L [facility] HospitalAlkaline [id number] 08:12:00* Test Item Value Reference Range Interpretation Comments Alkaline Phosphatase (test code = 6768-6) 81 40-150 [facility] [id number] 08:12:00* Test Item Value Reference Range Interpretation Comments Total Bilirubin (test code = 1975-2) 0.6 0.2-1.2 [facility]Asp[facility]o Transf (AST/SGOT) 2019-07-24 08:12:00* Test Item Value Reference Range Interpretation Comments Aspartate Amino Transf (AST/SGOT) (test code = Aspartate Amino Transf (AST/SGOT)) 13 5-34 [facility]Al[facility]otransferase (ALT/SGPT) 2019-07-24 08:12:00* Test Item Value Reference Range Interpretation Comments Alanine Aminotransferase (ALT/SGPT) (test code = 1742-6) 18 0-55 [facility]Total [id number] 08:12:00* Test Item Value Reference Range Interpretation Comments Total Protein (test code = 2885-2) 6.6 6.5-8.1 [facility] 08:12:00* Test Item Value Reference Range Interpretation Comments Albumin (test code = 1751-7) 2.7 3.5-5.0 L [facility]Globulin2020-03-31 08:12:00* Test Item Value Reference Range Interpretation Comments Globulin (test code = 29641-9) 3.9 2.3-3.5 H [facility]/Globulin [id number] 08:12:00 * Test Item Value Reference Range Interpretation Comments Albumin/Globulin Ratio (test code = 1759-0) 0.7 0.8-2.0 L [facility] HospitalAlkaline Iwseltfucyo5547-82-75 08:12:00* Test Item Value Reference Range Interpretation Comments Alkaline Phosphatase (test code = 6768-6) 81 40-150 [facility]EN [id number] 22:23:00 [facility] [address] [address] Patient Name: KORI JOHNSON MR #: [id number] : 1960 Age/Sex: 58/F Req #: [id number] Adm Physician: Ordered by: MICHAEL WHITING MD Report #: [id number] Location: [facility] Room/Bed: Procedure: [id number] HO PD/US ABDOMEN COMPLETE-HOPD Exam Date: Exam Time: REPORT STATUS: Signed HISTORY: A bdominal pain and fever rlq and ruq pain TECHNIQUE: Selected images fro m complete abdominal ultrasound provided for INTERPRETATION: COMPARISON: CT abdomen/pelvis 2112 hours. FINDINGS: Images are compromised due to patient's generous body habitus. Pancreas: Visualized portions are increase d in echotexture suggestive of lipomatosis without mass or ductal dilatation. Liver: Measures 18.6 cm in sagittal plane. The echotexture is diffusely increased. No mass in the visualized portions. Portal Vein: Measures 1.1 cm. Proper directional flow on spectral Doppler interrogation. Intrahepatic bile ducts: Normal Gallbladder: Present. A reported gallstone is not visualized. The gallbladder wall measures 5 mm. The staff forester reports pericholecystic fluid but this is not confirmed on the static images. The staff forester also rep orts hyperemia of the gallbladder on Doppler interrogation. This is not confir med on provided images, however. CBD: 0.9 cm. Right Kidney: 13.4 cm in greatest length. The echotexture is normal. There is no evidence for mass. There is no collecting system dilatation or evidence of obstruction. No renal calculi evident. No adjacent free fluid or fluid collections. Left Kid emily: Length is 12.1 cm. The echotexture is normal. There is no evidence for m ass. There is no collecting system dilatation or evidence of obstruction. No renal calculi evident. No adjacent free fluid or fluid collections. Spl een: 10.5 cm in length. No evidence for mass. Proximal Aorta: 1.9 cm. Mi d and distal Aorta: Not visualized due to bowel gas There is no free fluid. IMPRESSION: 1. Mildly thickened gallbladder wall. No confirmation of increased blood flow within the wall or pericholecystic fluid on provided abigail ges. Dilated common bile duct without intrahepatic bile duct dilatation. Findi ngs are inconclusive for acute cholecystitis. Recommend further evaluation wit h HIDA scan in nuclear medicine. 2. Hepatomegaly and steatosis. Sign ed by: Dr. Sneha Carrera MD on 07/23/2019 10:32 PM Dictated By: JAMIR CARRERA MD 31 Transcribed By: BONILLA on 07/23/192231 COPY TO: MICHAEL WHITING MD CT ABD/PEL WO [id number] 21:21:00 [address] [place] [address] Patient Name: KORI JOHNSON MR #: [id number] : 1960 Age/Sex: 58/F Req #: [id number] Adm Physician: Ordered by: MICHAEL WHITING MD Report #: [id number] Location: [facility] Room/Bed: Procedure: [id number] HO PD/CT ABD/PEL WO CONTRAST-HOPD Exam Date: 07/23/19 E xam Time: 2115 REPORT STATUS: Paula d CT Abdomen and Pelvis without contrast INDICATION: Right-sided abdomin al pain rlq and ruq pain [id number] TECHNIQUE: Thin collimation a xial images obtained from the diaphragm to the level of the pubic symphysis wi thout nonionic intravenous contrast. Dose reduction techniques used: Autom ated exposure control, adjustment of the mAs and/or kVp according to patient s ize, standardized low-dose protocol, and/or iterative reconstruction technique . RADIATION DOSE: Total DLP: 1146.69 mGy*cm Estimated effecti ve dose: (DLP x 0.015 x size factor) mSv CTDIvol has been reviewed. It is below the limits set by the Radiation Protocol Committee (RPC). COMPARIS ON: None. ABDOMEN FINDINGS: Lung Bases: Clear. The visualized portion of the mediastinum is normal. Liver: Steatosis. The right lobe measures 17 cm in length. No evidence of mass. Gallbladder: Present and appears normal. No ductal dilatation. Pancreas: Normal attenuation without mass. Sp javier: Normal size with a few calcified granulomata. Adrenal Glands: No evid ence for mass. Kidneys: Right: No renal calculus. No cortical mass or h ydronephrosis Left: No renal calculus. No cortical mass or hydronephrosis Lymph Nodes: No lymphadenopathy. Aorta: Normal in diameter with scat tered calcifications PELVIS FINDINGS: Bowel: Stomach: Normal. S mall Bowel: Normal in caliber with normal wall thickness. Large Bowel: Normal in caliber with normal wall thickness. Appendix: Normal. Bladder: Normal. Ureters: No ureteral dilatation or calculus. The uterus is absent. No adnexal mass. Peritoneum/retroperitoneum: No free fluid or fluid collectio n. No free air. Bones: Mild degenerative changes of the spine. Soft ti ssues: Bilateral infraumbilical anterior abdominal wall subcutaneous inflammat ion overlying skin thickening. This may be secondary to injections. No evidenc e of abdominal wall hernia. IMPRESSION: 1. No evidence for bowel obst ruction or inflammation. Normal appendix. 2. No evidence of renal calculus or obstructive uropathy. 3. Steatosis and mild hepatomegaly. Signed b y: Dr. Sneha Carrera MD on 07/23/2019 9:35 PM Dictated By: SNEHA CARRERA MD 34 Tra nscribed By: BONILLA on 07/23/192134 COPY TO: MICHAEL WHITING MD CXR 2 VIEW - [id number] 23:54:00 [place] [address] Patient Name: KORI JOHNSON MR #: [id number] : 1960 Age/Sex: 58/F Req #: [id number] Adm Physician: Ordered by: TRACE COLBERT MD Report #: [id number] Location: [facility] Room/Bed: Procedure: [id number] HO PD/CXR 2 VIEW - HOPD Exam Date: 04/23/19 Exam Time: 2306 REPORT STATUS: Signed EXAMI NATION: CXR 2 VIEW - HOPD INDICATION: Cough, congestion, bodyaches COMPARISON: None FINDINGS: TUBES and LINES: None. LUNGS: Lungs are well inflated. Bilateral central perihilar peribronchial haziness and mild central bronchial wall thickening. No consolidations. PLEURA: No pleural effusion or pneumothorax. HEART AND MEDIASTINUM: The cardiomedia stinal silhouette is unremarkable. BONES AND SOFT TISSUES: No acute osseo us lesion. Soft tissues are unremarkable. Degenerative changes in the spine a nd shoulders. UPPER ABDOMEN: No free air under the diaphragm. IMPRESS ION: Findings can be seen with bronchitis. No consolidations. Signed by: Alexandre Young DO on 04/23/2019 11:57 PM Dictated By: ALEXANDRE BOO DO 56 Transcri bed By: BONILLA on 04/23/192356 COPY TO: TRACE COLBERT MD Bedside [id number] 23:03:00* Test Item Value Reference Range Interpretation Comments Bedside Glucose (test code = 51151-6) 292 70-120 H Meter ID: [id number] [facility], ABDOMIN[facility], [id number] 11:52:00Abdomen limited area? Add comment if clarification is needed.->Gall BladderReason for exam:->RUQ abdominal pain, obese female concern for gallstonesFINAL REPORT TECHNIQUE: Grayscale ultrasound of the right abdomen. INDICATION: Right upper quadrant abdominal pain, obese female concern for gallstones. COMPARISON: CT from 01/30/2018. FINDINGS: MIDLINE VASCULATURE: The visualized inferior vena cava is patent. Portal vein is patent. The maximum visualized aortic diameter is 2.2 cm. LIVER: The liver is hyperechoic. The main portal vein measures 1.3 cm. A questionable hyperechoic focus in the left hepatic lobe measures 0.6 cm on image four. BILIARY:Gallbladder: No gallstones or sludge. No gallbladder wall thickening, pericholecystic fluid, or distention. Negative sonographic Camacho sign.Common bile duct measures 0.5 cm, within normal limits. No intrahepatic biliary ductal dilatation. PANCREAS: The partially visualized pancreatic head, neck, and body are normal. PERITONEUM: No free fluid. RIGHT KIDNEY: Normal in size. No hydronephrosis. No sonographically evident solid mass lesion. IMPRESSION: 1.No cholelithiasis or cholecystitis. 2.Diffuse fatty infiltration of the liver. 3.A mildly hyperechoic focus in the left hepatic lobe measures 0.6 cm and is most likely two adjacent vessels or a hemangioma. A follow-up ultrasound could be considered in six months to document stability. Signed: Loki Florentino MDReport Verified Date/Time: 02/01/2018 11:52:12 Reading Location: [place] [id number] Ultrasound Reading Room -GLUCOSE [id number] 11:13:00* Test Item Value Reference Range Interpretation Comments POC-GLUCOSE METER (BEAKER) (test code = 1538) 306 mg/dL 70-110 H Baby tested Mother ID used/TESTED AT [place] [address] POCT-GLUCOSE [id number] 08:22:00* Test Item Value Reference Range Interpretation Comments POC-GLUCOSE METER (BEAKER) (test code = 1538) 327 mg/dL 70-110 H TESTED AT [place] [address] [id number] 06:22:00* Test Item Value Reference Range Interpretation Comments MAGNESIUM (BEAKER) (test code = 627) 1.9 mg/dL 1.6-2.6 Specimen slightly hemolyzed [id number] 06:22:00* Test Item Value Reference Range Interpretation Comments PHOSPHORUS (BEAKER) (test code = 604) 3.1 mg/dL 2.3-4.7 Specimen slightly hemolyzed BASIC METABOLIC [id number] 06:22:00* Test Item Value Reference Range Interpretation Comments SODIUM (BEAKER) (test code = 381) 134 meq/L 136-145 L POTASSIUM (BEAKER) (test code = 379) 4.3 meq/L 3.5-5.1 Specimen slightly hemolyzed CHLORIDE (BEAKER) (test code = 382) 103 meq/L 98-107 CO2 (BEAKER) (test code = 355) 23 meq/L 22-29 BLOOD UREA NITROGEN (BEAKER) (test code = 354) 13 mg/dL 7-21 CREATININE (BEAKER) (test code = 358) 0.68 mg/dL 0.57-1.25 Specimen slightly hemolyzed GLUCOSE RANDOM (BEAKER) (test code = 652) 305 mg/dL 70-105 H CALCIUM (BEAKER) (test code = 697) 9.1 mg/dL 8.4-10.2 EGFR (BEAKER) (test code = 1092) 89 mL/min/1.73 sq m ESTIMATED GFR IS NOT ACCURATE CREATININE CLEARANCE IN PREDICTING GLOMERULAR FILTRATION RATE. ESTIMATED GFR IS NOT APPLICABLE FOR DIALYSIS PATIENTS. HEPATIC FUNCTION [id number] 06:22:00* Test Item Value Reference Range Interpretation Comments TOTAL PROTEIN (BEAKER) (test code = 770) 7.1 gm/dL 6.0-8.3 Specimen slightly hemolyzed ALBUMIN (BEAKER) (test code = 1145) 3.2 g/dL 3.5-5.0 L Specimen slightly hemolyzed BILIRUBIN TOTAL (BEAKER) (test code = 377) 0.4 mg/dL 0.2-1.2 Specimen slightly hemolyzed BILIRUBIN DIRECT (BEAKER) (test code = 706) 0.1 mg/dL 0.1-0.5 Specimen slightly hemolyzed ALKALINE PHOSPHATASE (BEAKER) (test code = 346) 73 U/L 40-150 AST (SGOT) (BEAKER) (test code = 353) 24 U/L 5-34 Specimen slightly hemolyzed ALT (SGPT) (BEAKER) (test code = 347) 29 U/L 6-55 Specimen slightly hemolyzed CBC W/PLT COUNT & AUTO [id number] 06:10:00* Test Item Value Reference Range Interpretation Comments WHITE BLOOD CELL COUNT (BEAKER) (test code = 775) 6.4 K/ L 3.5- 10.5 RED BLOOD CELL COUNT (BEAKER) (test code = 761) 4.66 M/ L 3.93-5 .22 HEMOGLOBIN (BEAKER) (test code = 410) 13.1 GM/DL 11.2-15.7 HEMATOCRIT (BEAKER) (test code = 411) 40.1 % 34.1-44.9 MEAN CORPUSCULAR VOLUME (BEAKER) (test code = 753) 86.1 fL 79. 4-94.8 MEAN CORPUSCULAR HEMOGLOBIN (BEAKER) (test code = 751) 28.1 pg 25.6-32.2 MEAN CORPUSCULAR HEMOGLOBIN CONC (BEAKER) (test code = 752) 32.7 GM/DL 32.2-35.5 RED CELL DISTRIBUTION WIDTH (BEAKER) (test code = 412) 12.7 % 11.7-14.4 PLATELET COUNT (BEAKER) (test code = 756) 250 K/CU MM 150-450 MEAN PLATELET VOLUME (BEAKER) (test code = 754) 11.0 fL 9.4-12 .3 NUCLEATED RED BLOOD CELLS (BEAKER) (test code = 413) 0 /100 WBC 0 -0 NEUTROPHILS RELATIVE PERCENT (BEAKER) (test code = 429) 47 % LYMPHOCYTES RELATIVE PERCENT (BEAKER) (test code = 430) 42 % MONOCYTES RELATIVE PERCENT (BEAKER) (test code = 431) 9 % EOSINOPHILS RELATIVE PERCENT (BEAKER) (test code = 432) 1 % BASOPHILS RELATIVE PERCENT (BEAKER) (test code = 437) 0 % NEUTROPHILS ABSOLUTE COUNT (BEAKER) (test code = 670) 2.99 K/ L 1.56-6.13 LYMPHOCYTES ABSOLUTE COUNT (BEAKER) (test code = 414) 2.66 K/ L 1.18-3.74 MONOCYTES ABSOLUTE COUNT (BEAKER) (test code = 415) 0.60 K/ L 0. 24-0.36 H EOSINOPHILS ABSOLUTE COUNT (BEAKER) (test code = 416) 0.09 K/ L 0.04-0.36 BASOPHILS ABSOLUTE COUNT (BEAKER) (test code = 417) 0.02 K/ L 0. 01-0.08 IMMATURE GRANULOCYTES-RELATIVE PERCENT (BEAKER) (test code = 2801) 0 % 0-1 POCT-GLUCOSE [id number] 23:20:00* Test Item Value Reference Range Interpretation Comments POC-GLUCOSE METER (BEAKER) (test code = 1538) 415 mg/dL 70-110 HH TESTED AT [facility] [address] [facility] [facility] [address] TROPONIN [id number] 19:31:00* Test Item Value Reference Range Interpretation Comments TROPONIN I (BEAKER) (test code = 397) < ng/mL 0.00-0.03 Troponin I (TnI) levels must be interpreted in the context of the presenting sym ptoms and the clinical findings. Elevated TnI levels indicate myocardial damage, but are not specific for ischemic heart disease. Elevated TnI levels are seen in patients with other cardiac conditions (including myocarditis and congestive h eart failure), and slight TnI elevations occur in patients with other conditions , including sepsis, renal failure, acidosis, acute neurological disease, and per sistent tachyarrhythmia.POCT-GLUCOSE [id number] 18:21:00* Test Item Value Reference Range Interpretation Comments POC-GLUCOSE METER (BEAKER) (test code = 1538) 208 mg/dL 70-110 H TESTED AT [place] [address] TROPONIN [id number] 15:58:00* Test Item Value Reference Range Interpretation Comments TROPONIN I (BEAKER) (test code = 397) < ng/mL 0.00-0.03 Troponin I (TnI) levels must be interpreted in the context of the presenting sym ptoms and the clinical findings. Elevated TnI levels indicate myocardial damage, but are not specific for ischemic heart disease. Elevated TnI levels are seen in patients with other cardiac conditions (including myocarditis and congestive h eart failure), and slight TnI elevations occur in patients with other conditions , including sepsis, renal failure, acidosis, acute neurological disease, and per sistent tachyarrhythmia.POCT-GLUCOSE [id number] 12:22:00* Test Item Value Reference Range Interpretation Comments POC-GLUCOSE METER (BEAKER) (test code = 1538) 195 mg/dL 70-110 H TESTED AT [place] [address] CT, CHEST WITH IV CONTRAST- PE TEST [id number] 10:42:00Reason for exam:-> chest pain pleuriticIs the patient ?->N/AWhat is the patient's sedation requirement?->No SedationFINAL REPORT Chest CT with contrast, PE protocol INDICATION: Chest pain, acute, PE suspected, high pretest probchest pain pleuritic COMPARISON: No prior studies available for comparison. TECHNIQUE: CT examination of the chest was performed after the administration of intravenous contrast per pulmonary embolism protocol. Coronal multiplanar reformation of the pulmonary arteries were performed. This exam was performed according to our departmental dose optimization program which includes automated exposure control, adjustment of the mA and/or kV according to patient size and/or use of iterative reconstructive technique. FINDINGS: The contrast bolus was adequate. There is no abnormal filling defect in the pulmonary trunk or pulmonary arteries to suggest pulmonary embolism. There is no pneumothorax, pulmonary edema or pleural effusion. There is mild bibasilar atelectasis without focal consolidation. The major airways are clear. There is a nonspecific 3 mm nodule in the left lower lobe. There is a calcified granuloma in the right middle lobe. The visualized portion of the thyroid gland appear unremarkable. There is no hilar, mediastinal or axillary lymphadenopathy. There is no pericardial effusion. Limited visualization of the upper abdominal structures demonstrate fatty liver. There is a small hiatus hernia. The heart size is enlarged. The osseous structures demonstrate degenerative change. IMPRESSION:1. No evidence of pulmonary embolism.2. Mild bibasilar atelectasis.3. Car diomegaly.4. Fatty liver.5. Small hiatus hernia. Signed: Abdelrahman Casper MDReport Jesus ified Date/Time: 01/31/2018 10:42:21 Reading Location: [address] Ortho Consu Reading Room -GLUCOSE [id number] 08:07:00* Test Item Value Reference Range Interpretation Comments POC-GLUCOSE METER (BEAKER) (test code = 1538) 208 mg/dL 70-110 H TESTED AT [facility] [address] [facility] [facility] [address] CREATINE KINASE (CK), TOTAL AND [id number] 01:13:00* Test Item Value Reference Range Interpretation Comments CREATINE KINASE TOTAL (BEAKER) (test code = 380) 89 U/L 29-20 0 CREATINE KINASE-MB (BEAKER) (test code = 750) 3.2 ng/mL 0.0-6.6 CREATINE KINASE-MB INDEX (BEAKER) (test code = 395) 3.6 % CK-MB Reference Range:<6.7 Normal6.7-10.0 Borderline>10.0 Abnormal TROPONIN [id number] 01:13:00* Test Item Value Reference Range Interpretation Comments TROPONIN I (BEAKER) (test code = 397) < ng/mL 0.00-0.03 Troponin I (TnI) levels must be interpreted in the context of the presenting sym ptoms and the clinical findings. Elevated TnI levels indicate myocardial damage, but are not specific for ischemic heart disease. Elevated TnI levels are seen in patients with other cardiac conditions (including myocarditis and congestive h eart failure), and slight TnI elevations occur in patients with other conditions , including sepsis, renal failure, acidosis, acute neurological disease, and per sistent tachyarrhythmia.[id number] 01:05:00* Test Item Value Reference Range Interpretation Comments LIPASE (BEAKER) (test code = 749) 34 U/L 8-78 [id number] 01:05:00* Test Item Value Reference Range Interpretation Comments AMYLASE (BEAKER) (test code = 349) 31 U/L 25-125 Specimen slightly hemolyzed BASIC METABOLIC [id number] 01:05:00* Test Item Value Reference Range Interpretation Comments SODIUM (BEAKER) (test code = 381) 133 meq/L 136-145 L POTASSIUM (BEAKER) (test code = 379) 4.1 meq/L 3.5-5.1 Specimen slightly hemolyzed CHLORIDE (BEAKER) (test code = 382) 100 meq/L 98-107 CO2 (BEAKER) (test code = 355) 24 meq/L 22-29 BLOOD UREA NITROGEN (BEAKER) (test code = 354) 16 mg/dL 7-21 CREATININE (BEAKER) (test code = 358) 0.72 mg/dL 0.57-1.25 Specimen slightly hemolyzed GLUCOSE RANDOM (BEAKER) (test code = 652) 296 mg/dL 70-105 H CALCIUM (BEAKER) (test code = 697) 9.1 mg/dL 8.4-10.2 EGFR (BEAKER) (test code = 1092) 83 mL/min/1.73 sq m ESTIMATED GFR IS NOT ACCURATE CREATININE CLEARANCE IN PREDICTING GLOMERULAR FILTRATION RATE. ESTIMATED GFR IS NOT APPLICABLE FOR DIALYSIS PATIENTS. HEPATIC FUNCTION [id number] 01:05:00* Test Item Value Reference Range Interpretation Comments TOTAL PROTEIN (BEAKER) (test code = 770) 7.5 gm/dL 6.0-8.3 Specimen slightly hemolyzed ALBUMIN (BEAKER) (test code = 1145) 3.4 g/dL 3.5-5.0 L Specimen slightly hemolyzed BILIRUBIN TOTAL (BEAKER) (test code = 377) 0.3 mg/dL 0.2-1.2 Specimen slightly hemolyzed BILIRUBIN DIRECT (BEAKER) (test code = 706) 0.1 mg/dL 0.1-0.5 Specimen slightly hemolyzed ALKALINE PHOSPHATASE (BEAKER) (test code = 346) 81 U/L 40-150 AST (SGOT) (BEAKER) (test code = 353) 22 U/L 5-34 Specimen slightly hemolyzed ALT (SGPT) (BEAKER) (test code = 347) 30 U/L 6-55 Specimen slightly hemolyzed RAD, CHEST, 2 [id number] 23:39:00Reason for exam:->cough, SOB, L rib painShould this be performed at the bedside?->NoIs the patient ?->N/A FINAL REPORT INDICATION: cough, SOB, L rib pain COMPARISO N: March 21, 2017 TECHNIQUE: Frontal and lateral views of the chest. FINDINGS : Lungs and pleura: Clear lungs. No effusion.Heart and mediastinum: Normal heart size. Unremarkable mediastinal contours.Osseous structures: No acute abnormalit y.Additional findings: None. IMPRESSION: No acute intrathoracic abnormality. Si gned: JR Lay, Rupert MDReport Verified Date/Time: 01/30/2018 23:39:10 Reading Location: [address] Reading Room W/PLT COUNT & AUTO [id number] 22:58:00* Test Item Value Reference Range Interpretation Comments WHITE BLOOD CELL COUNT (BEAKER) (test code = 775) 10.2 K/ L 3.5- 10.5 RED BLOOD CELL COUNT (BEAKER) (test code = 761) 5.00 M/ L 3.93-5 .22 HEMOGLOBIN (BEAKER) (test code = 410) 14.3 GM/DL 11.2-15.7 HEMATOCRIT (BEAKER) (test code = 411) 42.1 % 34.1-44.9 MEAN CORPUSCULAR VOLUME (BEAKER) (test code = 753) 84.2 fL 79. 4-94.8 MEAN CORPUSCULAR HEMOGLOBIN (BEAKER) (test code = 751) 28.6 pg 25.6-32.2 MEAN CORPUSCULAR HEMOGLOBIN CONC (BEAKER) (test code = 752) 34.0 GM/DL 32.2-35.5 RED CELL DISTRIBUTION WIDTH (BEAKER) (test code = 412) 12.6 % 11.7-14.4 PLATELET COUNT (BEAKER) (test code = 756) 277 K/CU MM 150-450 MEAN PLATELET VOLUME (BEAKER) (test code = 754) 10.5 fL 9.4-12 .3 NUCLEATED RED BLOOD CELLS (BEAKER) (test code = 413) 0 /100 WBC 0 -0 NEUTROPHILS RELATIVE PERCENT (BEAKER) (test code = 429) 57 % LYMPHOCYTES RELATIVE PERCENT (BEAKER) (test code = 430) 33 % MONOCYTES RELATIVE PERCENT (BEAKER) (test code = 431) 8 % EOSINOPHILS RELATIVE PERCENT (BEAKER) (test code = 432) 1 % BASOPHILS RELATIVE PERCENT (BEAKER) (test code = 437) 0 % NEUTROPHILS ABSOLUTE COUNT (BEAKER) (test code = 670) 5.81 K/ L 1.56-6.13 LYMPHOCYTES ABSOLUTE COUNT (BEAKER) (test code = 414) 3.42 K/ L 1.18-3.74 MONOCYTES ABSOLUTE COUNT (BEAKER) (test code = 415) 0.85 K/ L 0. 24-0.36 H EOSINOPHILS ABSOLUTE COUNT (BEAKER) (test code = 416) 0.10 K/ L 0.04-0.36 BASOPHILS ABSOLUTE COUNT (BEAKER) (test code = 417) 0.02 K/ L 0. 01-0.08 IMMATURE GRANULOCYTES-RELATIVE PERCENT (BEAKER) (test code = 2801) 0 % 0-1 CT, [id number] 22:48:00Reason for exam:->L flank painIs the patient ?->N/AWhat is the patient's sedation requirement?->No SedationFINAL REPORT HISTORY : Flank pain, stone disease suspectedL flank pain Technique: Multiple axial images of the abdomen and pelvis were pe rformed without the administration of IV or oral contrast. This exam was perform ed according to our departmental dose optimization program which includes automa kailee exposure control, adjustment of the mA and/or kV according to patient size a nd/or use of iterative reconstructive technique. COMPARISON : None COMMENT : Th ere is some bibasilar linear subsegmental atelectasis versus scarring. The visua lized spleen, adrenal glands, kidneys, pancreas and duodenum are within normal l imits. There is hepatic steatosis. Some hyperdense areas within the liver around the gallbladder more likely represent areas of focal fatty sparing. The findings can be best assessed with an MRI, liver mass protocol, to exclude other potent ial etiologies/lesions. There is a small sized hiatal hernia. There is atheroscl erotic vascular disease. There is no abdominal, retroperitoneal or pelvic lympha denopathy. Multilevel degenerative disc changes of the visualized thoracolumbar spine are seen. There is a small cutaneous/subcutaneous partially visualized nod ule in the left lower chest lateral soft tissues measuring up to 1.0 cm. Correla tion with the patient's physical examination is advised. While this may represen t a sebaceous cyst, other soft tissue masses/lesions cannot be excluded. There i s no free fluid or free air in the abdomen or pelvis. No findings of any bowel o bstruction. The small bowel is within normal limits. There is colonic diverticul osis. There are no CT findings to suggest diverticulitis, however. The appendix is visualized. There are no CT findings to suggest appendicitis. The patient is status post hysterectomy. No adnexal masses/lesions are appreciated. There is a tiny nonspecific focus of air in the anterior aspect of the bladder of unclear etiology/significance. Impression: 1. No renal/ureteral stones identified. There is no hydronephrosis/hydroureter. 2. Colonic diverticulosis without CT f indings of diverticulitis. 3. Tiny nonspecific focus of air within the bladder. Please see above for details. Signed: William Jha MDReport Verified Date/Time: 01/30/2018 22:48:13 Reading Location: [facility] B1 [id number] Consult Reading Room E lectronically signed by: WILLIAM JHA M.D. on 01/30/2018 10:48 PM URINALYSIS W/ [id number] 22:24:00* Test Item Value Reference Range Interpretation Comments COLOR (BEAKER) (test code = 470) Light Yellow CLARITY (BEAKER) (test code = 469) Clear SPECIFIC GRAVITY UA (BEAKER) (test code = 468) 1.019 1.001-1 .035 PH UA (BEAKER) (test code = 467) 5.5 5.0-8.0 PROTEIN UA (BEAKER) (test code = 464) Negative Negative GLUCOSE UA (BEAKER) (test code = 365) >1000 mg/dL Negative A KETONES UA (BEAKER) (test code = 371) Negative Negative BILIRUBIN UA (BEAKER) (test code = 462) Negative Negative BLOOD UA (BEAKER) (test code = 461) Negative Negative NITRITE UA (BEAKER) (test code = 465) Negative Negative LEUKOCYTE ESTERASE UA (BEAKER) (test code = 466) Negative Negat young UROBILINOGEN UA (BEAKER) (test code = 463) 0.2 mg/dL 0.2-1.0 RBC UA (BEAKER) (test code = 519) 1 /HPF WBC UA (BEAKER) (test code = 520) 4 /HPF BACTERIA (BEAKER) (test code = 517) Occasional SQUAMOUS EPITHELIAL (BEAKER) (test code = 516) 2 /HPF SOURCE(BEAKER) (test code = 2795) Urine, Clean Catch RAD, CHEST, 2 [id number] 05:49:00Reason for exam:->SHORTNESS OF BREATHReason for exam:->COUGHFINAL REPORT EXAMINATION: 2 VIEW CHEST INDICATION: SHORTNESS OF BREATH, COUGH IMPRESSION: Compared with 10/16/2003 Lung volumes are relatively large with apical radiolucency. Findings are nonspecific but can be associated with obstructive lung disease. No definite evidence of a discrete pneumonia, pulmonary edema or pleural effusion. The heart is borderline enlarged. Mediastinal contours are grossly sharp and stable. No evidence of an acute osseous abnormality or pneumothorax. Chest CT could be performed for further characterization if clinically warranted. Signed: Katie Hickman MDReport Verified Date/Time: 03/21/2017 05:49:45 Reading Location: [address] Reading Room -GLUCOSE [id number] 10:41:00* Test Item Value Reference Range Interpretation Comments POC-GLUCOSE METER (BEAKER) (test code = 1538) 240 mg/dL 70-110 H TESTED AT [facility] [address] [facility] [address] [facility] [id number]
[2019-12-08] MEDS ORDERED: HYDROCODONE/APAP 5MG-325MG TAB PO ONE (18:00)
--- NOTE | 2019-12-08 18:35 | NUR ---
REC'D REPORT FROM OFF GOING NS. AWAITING XR RESULTS
--- NOTE | 2019-12-08 19:23 | Diagnostic Imaging Report ---
SHOULDER 1VW RT - [facility] - 3 views HISTORY: Pain COMPARISON: None available. IMPRESSION: Comminuted mildly displaced intra-articular left humeral supracondylar fracture with associated soft tissue swelling. Signed by: Dr. Radames Rodríguez MD on 12/08/2019 7:20 PM
--- NOTE | 2019-12-08 19:24 | Diagnostic Imaging Report ---
ELBOW 3 VIEW RT - [facility] - 3 views HISTORY: Pain COMPARISON: None available. IMPRESSION: Comminuted mildly displaced intra-articular left humeral supracondylar fracture with associated soft tissue swelling. No evidence of acute displaced fracture or dislocation of the right shoulder. Signed by: Dr. Radames Rodríguez MD on 12/08/2019 7:21 PM
[2019-12-08] MEDS ORDERED: TYLENOL WITH C1 EACH PO (19:34)
[2019-12-08 20:40] VITALS: BP 160/74
--- NOTE | 2019-12-08 20:48 | Emergency Department Note ---
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 She states that she slipped on the floor in her house and landed on tile floor on her right elbow and the right side of her face. Denies any loss of consciousness. She denies any nausea vomiting. The pain is worse with movement of her right elbow. Left handed, but uses her right hand a lot due to decreased ability to use left ring and little finger due to old surgery. No new neurological States new numbness, tingling, weakness of LUE, has longstanding decreased strength in ability to adduct right finger and right middle finger together (old from carpel tunnel). no vision changes. Teeth fit together normally. Historian: Patient Arrival Mode: Car Radiation: Reports other (rt shoulder) Severity: severe Onset quality: sudden Duration (how long): hour(s) Timing of current episode: constant Progression: unchanged Chronicity: new Context: Reports trauma/injury Relieving factors: rest Exacerbating factors: movement Associated symptoms: Denies confusion, Denies chest pain, Denies cough, Denies diaphoresis, Denies fever/chills, Denies headaches, Denies loss of appetite, Denies malaise, Denies nausea/vomiting, Denies shortness of breath, Denies syncope, Denies weakness Past Medical/Family History Physician Review I have reviewed the patient's past medical and family history. Any updates have been documented here. Past Medical History Recent Fever: No Clinical Suspicion of Infectio: No New/Unexplained Change in Ment: No Past Medical History: Hypertension, Diabetes Other Medical History: PSORIASIS Past Surgical History: Cholecysctectomy Other Surgery: left arm surgery Right patella surgery left carpal tunnel surgery left elbow surgery Social History Smoking Cessation: Never Smoker Counseling Performed: No Alcohol Use: None Any Illegal Drug Use: No Physically hurt or threatened: No Other Last Tetanus: UTD Any Pre-Existing Lines (PICC,: No Review of Systems Review of Systems Constitutional: Reports no symptoms EENTM: Reports no symptoms Cardiovascular: Reports no symptoms Respiratory: Reports no symptoms Gastrointestinal: Denies diarrhea, Denies nausea, Denies vomiting Musculoskeletal: Reports as per HPI Integumentary: Reports as per HPI, Reports other (cut below rt eyebrow. Bleeding controlled with direct pressure) Neurological: Reports no symptoms Psychological: Reports no symptoms Hematological/Lymphatic: Denies easy bleeding, Denies easy bruising Physical Exam Related Data Allergies: Coded Allergies: No Known Allergies (Unverified , 07/23/19) Triage Vital Signs Vital Signs Date Time Temp Pulse Resp B/P (MAP) Pulse Ox O2 Delivery O2 Flow Rate FiO2 12/08/19 17:27 99.0 93 18 167/75 98 Room Air Physical Exam CONSTITUTIONAL Constitutional: Present well-developed, Present well-nourished HENT HENT: Present dentition normal, Present other (superficial 1 cm laceration just below lateral right eyebrow, no facial tenderness, EOMI, no villagomez sign, left infraobital eccymosis); Absent atraumatic HENT L/R: Present left TM normal, Present right TM normal, Present left ext ear normal, Present right ext ear normal EYES Eyes: Reports PERRL, Reports conjunctivae normal NECK Neck: Present ROM normal, Present other (non tender) PULMONARY Pulmonary: Present effort normal, Present breath sounds normal CARDIOVASCULAR Cardiovascular: Present regular rhythm, Present heart sounds normal, Present capillary refill normal, Present normal rate GASTROINTESTINAL Abdominal: Present soft, Present nontender, Present bowel sounds normal GENITOURINARY SKIN Skin: Present other (laceation per above) MUSCULOSKELETAL Musculoskeletal: Present other (tenderness distal humerous just above right elbow. Limited ROM in left elbow and shoulder due to pain at elbow. +2 radial puse equal bilaterally. Brisk cap refill of all ditgits of right hand.) NEUROLOGICAL Neurological: Present alert, Present oriented x 3, Present no gross motor or sensory deficits (decreased adduciton of rt ring finger to rt middle finger (patient states is at baseline), otherwise finger adduciton WNL. OK sign WNL.); Absent sensory deficit PSYCHOLOGICAL Psychological: Present mood/affect normal Results Laboratory Laboratory comments IMPRESSION: Comminuted mildly displaced intra-articular left humeral supracondylar fracture with associated soft tissue swelling. No evidence of acute displaced fracture or dislocation of the right shoulder. Signed by: Dr. Radames Martin MD on 12/08/2019 7:21 PM Dictated By: RADAMES MARTIN MD Procedures Laceration Laceration: Laceration 1 Site: face (below right lateral eyebrow) Size (cm): 1 Description: linear Depth: simple, single layer Pre-repair: wound exposed (superficial), irrigated extensively (prepped with bedadine) Skin layer closed with: other (dermabonc) Additional comments tolerated well, no complications Orthopedic Splinting/Casting Injury: Injury #1 Side: right Upper exremity injury location: elbow Upper extremity immobilizer: sugar tong splint (double) Other orthopedic equipment: other (sling) Additional comments Neuromuscular intact after placement Assessment & Plan Medical Decision Making [facility] Patient with CHI with no LOC and non-focal neuro exam. Offered CT head and patient declined. Gave strict return precautions. Patient with distal humerus supracondylar fracture, will splint with prompt ortho follow-up. gave strict ortho return precautions such as compartment syndrome, numbness, tingling, weakness, and vascular. Patient looked up in [employer] as required for d/c with narcotic. Reassessment Reassessment time: 19:00 Reassessment Pain much better Assessment & Plan Final Impression: (1) Closed head injury (2) Laceration of face (3) Supracondylar fracture of humerus (4) Abnormal x-ray Depart Disposition: HOME, SELF-CARE Last Vital Signs Date Time Temp Pulse Resp B/P (MAP) Pulse Ox O2 Delivery O2 Flow Rate FiO2 12/08/19 17:27 99.0 93 18 167/75 98 Room Air Home Meds Active Scripts Acetaminophen With Codeine (TYLENOL WITH CODEINE #3 TABLET) 1 Each Tablet, 300 MG PO Q6HR PRN for SEVERE PAIN (7-10), #30 TAB Prov:TRACE HU MD 12/08/19 Doxycycline Hyclate (DOXYCYCLINE HYCLATE) 100 Mg Tablet, 1 TAB PO Q12H for 10 Days, #20 TAB Prov:BRETT MATHEWS 08/15/19 Reported Medications Insulin Glargine,Hum.rec.anlog (Basaglar Kwikpen U-100) 100 Unit/1 Ml Insuln.pen, 50 UNITS SQ DAILY 07/24/19 Albuterol Sulfate (ALBUTEROL SULFATE) 2.5 Mg/3 Ml Vial.neb, 3 ML INH Q4HR PRN for SHORTNESS OF BREATH 07/24/19 Amlodipine Besylate (AMLODIPINE BESYLATE) 10 Mg Tablet, 10 MG PO DAILY 07/24/19 Valsartan (Valsartan) 320 Mg Tablet, 320 MG PO DAILY 07/24/19 Nph, Human Insulin Isophane (NOVOLIN N) 100 Unit/1 Ml Vial, 75 UNITS SQ Q12H 07/24/19 Atorvastatin Calcium (ATORVASTATIN CALCIUM) 20 Mg Tablet, 20 MG PO HS 07/24/19 Metformin Hcl (METFORMIN HCL) 500 Mg Tablet, 500 MG PO BID 07/24/19 Carvedilol (CARVEDILOL) 25 Mg Tablet, 50 MG PO BID 07/24/19 Ixekizumab (Taltz Autoinjector) 80 Mg/1 Ml Auto.injct, 80 MG SQ UD QMONTHLY, NEXT DOSE 07/29/19 07/24/19 Budesonide/Formoterol Fumarate (SYMBICORT 160-4.5 MCG INHALER) 10.2 Gm Hfa.aer.ad, 2 INH INH DAILY PRN for SHORTNESS OF BREATH 07/24/19 Medications in the ED Acetaminophen/ Hydrocodone Bitart 2 ea ONCE ONCE PO Last administered on 12/08/19at 17:57; Admin Dose 2 EA; Start 12/08/19 at 18:00; Stop 12/08/19 at 18:13; Status DC TRACE HU MD Dec 08, 2019 18:49
== END 2019-12-08 20:39 | disposition home or self-care (01) ==
LOC: FSED 17:17
DX: M25.521 Pain in right elbow (principal); W01.0XXA Fall on same level from slipping, tripping and stumbling without subsequent striking against object, initial encounter; Y93.01 Activity, walking, marching and hiking; Y92.008 Other place in unspecified non-institutional (private) residence as the place of occurrence of the external cause; I10 Essential (primary) hypertension; E11.9 Type 2 diabetes mellitus without complications; L40.9 Psoriasis, unspecified
CPT/HCPCS: 99284

== ENCOUNTER 2021-01-11 10:08 | Emergency (ER) | payer OTHER ==
[~2021-01-11] VITALS: Ht 165.1 cm; Wt 100.0 kg
[~2021-01-11 10:08] MED LIST changes: +TYLENOL WITH C1 EACH PO
[2021-01-11] MEDS ORDERED: VITAMIN D3250 MCG (12:46)
[2021-01-11] MEDS ORDERED: ASPIRIN EC81 MG PO (12:46)
[2021-01-11] MEDS ORDERED: HYDRALAZINE HCL25 MG PO (12:46)
[2021-01-11] MEDS ORDERED: AMOXICILLIN/CLAVULANATE K 875 MG TAB PO STA (14:05)
[2021-01-11] MEDS ORDERED: AMOXICILLIN/CLAVULANATE K 875 MG TAB ONE (14:19)
[2021-01-11] MEDS ORDERED: CEPHALEXIN500 MG PO (14:55)
[2021-01-11] MEDS ORDERED: CLEOCIN HCL300 MG PO (14:56)
== END 2021-01-11 15:13 | disposition home or self-care (01) ==
LOC: FSED 11:52
DX: M79.604 Pain in right leg (principal); L03.115 Cellulitis of right lower limb; M79.89 Other specified soft tissue disorders; B35.3 Tinea pedis; E11.9 Type 2 diabetes mellitus without complications; I10 Essential (primary) hypertension; L40.9 Psoriasis, unspecified
CPT/HCPCS: 93971; 99283

== ENCOUNTER 2021-04-14 21:45 | Emergency (ER) | payer OTHER ==
[~2021-04-14] VITALS: Ht 165.1 cm; Wt 96.6 kg
[~2021-04-14 21:45] MED LIST changes: +ASPIRIN EC81 MG PO; +CEPHALEXIN500 MG PO; +CLEOCIN HCL300 MG PO; +HYDRALAZINE HCL25 MG PO; +VITAMIN D3250 MCG
[2021-04-14] MEDS ORDERED: TRAMADOL HCL 50 MG TAB PO ONE (22:15)
[2021-04-14] MEDS ORDERED: TRAMADOL HCL 50 MG TAB ONE (22:23)
[2021-04-14] MEDS ORDERED: NAPROXEN250 MG PO (22:51)
[2021-04-14 23:05] VITALS: BP 186/81
== END 2021-04-14 23:28 | disposition home or self-care (01) ==
LOC: FSED 22:00
DX: S93.402A Sprain of unspecified ligament of left ankle, initial encounter (principal); X50.1XXA Overexertion from prolonged static or awkward postures, initial encounter; Y93.01 Activity, walking, marching and hiking; Y92.89 Other specified places as the place of occurrence of the external cause; I10 Essential (primary) hypertension; E11.9 Type 2 diabetes mellitus without complications; L40.9 Psoriasis, unspecified
CPT/HCPCS: 99283

== ENCOUNTER 2021-11-17 20:23 | Emergency (ER) | payer OTHER ==
[~2021-11-17] VITALS: Ht 165.1 cm; Wt 96.6 kg
[~2021-11-17 20:23] MED LIST changes: +NAPROXEN250 MG PO
[2021-11-17] MEDS ORDERED: CEPHALEXIN500 MG PO (20:38)
== END 2021-11-17 20:43 | disposition home or self-care (01) ==
LOC: ER 20:36
DX: Z48.01 Encounter for change or removal of surgical wound dressing (principal); I10 Essential (primary) hypertension; E78.5 Hyperlipidemia, unspecified; E11.9 Type 2 diabetes mellitus without complications; L40.9 Psoriasis, unspecified
CPT/HCPCS: 99282

== ENCOUNTER 2024-11-08 08:02 | Emergency (ER) | payer MEDICARE, OTHER ==
[~2024-11-08] VITALS: Ht 165.1 cm; Wt 90.3 kg
[2024-11-08] MEDS ORDERED: TRAMADOL HCL 50 MG TAB ONE (08:24)
[2024-11-08] MEDS: TRAMADOL HCL 50 MG TAB PO ONE (08:26)
[2024-11-08 09:06] VITALS: PULSE 87; RESP 16; TEMP 98.5; O2SAT 100
[2024-11-08] MEDS ORDERED: ULTRAM 50MG50 MG PO (09:13)
== END 2024-11-08 09:28 | disposition home or self-care (01) ==
LOC: FSED 08:08
DX: M25.512 Pain in left shoulder (principal); M65.812 Other synovitis and tenosynovitis, left shoulder; I10 Essential (primary) hypertension; E11.9 Type 2 diabetes mellitus without complications; E78.5 Hyperlipidemia, unspecified; L40.9 Psoriasis, unspecified
CPT/HCPCS: 99284